=== PATIENT | female | born 1965 | race Caucasian/White ===

== ENCOUNTER → 2018-10-22 | Outpatient (CLI) | payer MEDICARE ==
--- NOTE | 2018-10-23 15:30 | XCELERA REPORT ---
[address] [address] Lower Extremity Arterial Evaluation Name: TABBY DEVI Age: 53 yrs Gender: Female : 1965 Patient Status: Outpatient Patient Location: [facility] Study Date: 10/22/2018 11:17 AM Procedure: A color flow and duplex scan of the lower extremity arteries was performed bilaterally with velocity and waveform anaylsis. Reason For Study: PVD Ordering Physician: CELESTE AGUSTIN Performed By: Selvin Duran Measurements and Calculations Right Left POT FISHER PSV 127.3 107.5 cm/sec Prox PFA PSV -62.9 -55.3 cm/sec Prox Pop A PSV 48.9 51.1 cm/sec Dist ALTAGRACIA PSV -37.1 43.2 cm/sec Dist PONY ROUGHER PSV 34.8 37.6 cm/sec Braulio Pedis PSV -28.5 -34.8 cm/sec Right Side Arterial Evaluation Normal velocity and triphasic waveforms noted from the Common Femoral artery to the infrageniculate vessels. 0 % stenosis . Ankle Brachial index attempted, not tolerable to the patient.. Left Side Arterial Evaluation Normal velocity and triphasic waveforms noted from the Common Femoral artery to the infrageniculate vessels. 0 % stenosis . Ankle Brachial index attempted, not tolerable to the patient.. Interpretation Summary No hemodynamically significant lesions in the bilateral lower extremities, on duplex imaging, at rest. : CELESTE AGUSTIN > Lee Sharp
== END ==
LOC: SP 10:43
PROVIDERS: ATTEND Internal Medicine
DX: I73.9 Peripheral vascular disease, unspecified (principal)
CPT/HCPCS: 93925

== ENCOUNTER → 2019-03-02 | Outpatient (CLI) | payer MEDICARE ==
--- NOTE | 2019-03-02 16:41 | WOMENS IMAGING REPORT ---
EXAM DESCRIPTION: 3D SCREENING MAMMO BILAT COMPLETED DATE/TIME: 03/02/2019 9:53 am REASON FOR STUDY: Z12.31 ENCOUNTER FOR SCREENING MAMMOGRAM FOR MALIGNANT NEOPLASM OF BREAST Z12.31 ENCNTR SCREEN MAMMOGRAM FOR MALIGNANT NEOPLASM OF MARIELA COMPARISON: None. TECHNIQUE: Standard craniocaudal and mediolateral oblique views of each breast recorded using digita l acquisition and breast tomosynthesis. LIMITATIONS: None. FINDINGS: RIGHT BREAST MASSES: No suspicious masses. CALCIFICATIONS: No new or suspicious calcifications. ARCHITECTURAL DISTORTION: None. DEVELOPING DENSITY: None. ASYMMETRY: None noted. OTHER: No other significant findings. LEFT BREAST MASSES: Oval mass in the upper inner breast, located 8 cm from the nipple. Fairly smooth margins on tomosynthesis images. CALCIFICATIONS: Clustered calcifications in the superior breast, located 8.5 cm from the nipple. ARCHITECTURAL DISTORTION: None. DEVELOPING DENSITY: None. ASYMMETRY: None noted. OTHER: No other significant findings. Read with the assistance of CAD. .[facility] - R2 Cenova Version 1.3 .[facility] Imaging - R2 Cenova Version 2.1 .[facility] Imaging - R2 Cenova Version 2.4 .[facility] [place] - R2 Cenova Version 2.4 .[facility] - R2 Appellate [address] Judge Version 9.2 IMPRESSION: Oval mass in the upper inner left breast. Calcifications in the superior left breast. No worrisome mammographic findings in the right breast. BREAST DENSITY: b. There are scattered areas of fibroglandular density. BIRAD: 0 Incomplete: Needs Additional Imaging Evaluation and/or prior Mammograms for Comparison. RECOMMENDATION: RECOMMENDED FOLLOW-UP: Recommend additional evaluation with ultrasound of the left b reast and magnification views of the left breast. Recommend routine screening mammography of the rig ht breast. The patient will be contacted for additional imaging. COMMENT: The patient has been notified of the results by letter per SA requirements. Additional no tification policies are in place for contacting patient with suspicious or incomplete findings. Quality ID #[id number]: The [employer] recommends an annual screening mammogram for women aged 40 years or over. This facility utilizes a reminder system to ensure that all patients receive reminder letters, and/or direct phone calls for appointments. This includes reminders for routine scr eening mammograms, diagnostic mammograms, or other Breast Imaging Interventions when appropriate. Th is patient will be placed in the appropriate reminder system. The [employer] (ACR) has developed recommendations for screening MRI of the breast s in certain patient populations, to be used in conjunction with mammography. Breast MRI surveillanc e may be appropriate for women with more than 20% lifetime risk of developing breast cancer as deter mined by genetic testing, significant family history of the disease, or history of mantle radiation f or Hodgkins Disease. ACR Practice Guidelines 2008. DBT Technology DBT is a type of tomographic mammography. With conventional mammography, overlapping breast tissue ma y make lesions difficult to detect, even with good compression. DBT uses an x-ray tube that rotates a round the breast, taking images at different angles. These images are then combined to create thin sl ices of the breast that the radiologist can view as a 3D reconstruction. The PHARMAJET unit can perform full-field digital mammograms (2D imaging); or DBT (3D imaging); or both, in a combination mode that quickly performs both the mammogram and the tomosynthesis scan while the breast is still compressed. PQRS 6045F: Fluoroscopic imaging is not utilized for breast tomosynthesis. TECHNICAL DOCUMENTATION: FINDING NUMBER: (1) ASSESSMENT: (1) JOB ID: [id number] [employer]- All Rights Reserved Reading location - IP/workstation name: [email or web address]
== END ==
LOC: WI 09:24
PROVIDERS: ATTEND Internal Medicine
DX: Z12.31 Encounter for screening mammogram for malignant neoplasm of breast (principal)
CPT/HCPCS: 77063; 77067

== ENCOUNTER → 2019-03-18 | Outpatient (CLI) | payer MEDICARE ==
--- NOTE | 2019-03-18 15:31 | WOMENS IMAGING REPORT ---
EXAM DESCRIPTION: LEFT DIAGNOSTIC MAMMO W/CAD; U/S BREAST UNILAT LIMITED COMPLETED DATE/TIME: 03/18/2019 9:26 am; 03/18/2019 10:04 am REASON FOR STUDY: N63.22 UNSPECIFIED LUMP IN THE LEFT BREAST, UPPER INNER QUADRANT; LEFT BREAST MASS N63.22 UNSPECIFIED LUMP IN THE LEFT BREAST, UPPER INNER QUAD COMPARISON: Mammograms 03/02/2019 TECHNIQUE: Magnification craniocaudal and 90 mediolateral images, left whole breast 90 mediolatera l of the breast recorded with digital acquisition. Additional left breast 90 mediolateral tomosynthesis was performed. Left breast ultrasound was also performed. LIMITATIONS: None. FINDINGS: BREAST LATERALITY: Left MASSES: There is a mass with lobular borders in the left breast upper inner quadrant 10 to 11 o'clock position measuring about 2.5 x 1.5 cm in size. There are associated coarse dense calcifications. CALCIFICATIONS: In the deep left 12 o'clock position, a cluster of pleomorphic calcifications present without associated mass. These are variable in size shape and density, marked with a [place] on the craniocaudad magnification view. Stereotactic biopsy of the left breast calcifications is recommende d. ARCHITECTURAL DISTORTION: None. DEVELOPING DENSITY: None. ASYMMETRY: None noted. OTHER: No other significant findings. Read with the assistance of CAD. .[facility] - R2 Construction Project Engineer Version 9.2 Left breast ultrasound: Ultrasound of the upper inner quadrant left breast demonstrates a 2.5 x 1.5 cm hypoechoic solid mass. There is acoustic absorption. Associated microcalcifications. Although this could represent a scl erotic fibroadenoma, malignancy could not be excluded. Ultrasound-guided core biopsy with post biops y clip placement and follow-up two-view mammogram recommended. IMPRESSION: Solid left breast mass upper inner quadrant 10 to 11 o'clock position. Ultrasound-guide d core biopsy and post biopsy clip placement mammogram Pleomorphic calcifications in the deep left breast 12 o'clock position. Stereotactic biopsy is recom mended. BREAST DENSITY: c. The breasts are heterogeneously dense, which may obscure small masses. BIRAD: 4 Suspicious. Biopsy should be performed in the absence of clinical contra-indication. Ultrasound-guided core biopsy upper inner quadrant solid left breast 2.5 x 1.5 cm mass. Stereotactic biopsy left breast 12 o'clock pleomorphic microcalcifications RECOMMENDATION: RECOMMENDED FOLLOW UP: Ultrasound-guided core biopsy upper inner quadrant left breas t mass Stereotactic biopsy left breast 12 o'clock microcalcifications. This can be performed on the same da te. SPECIFIC INTERVENTION/IMAGING/CONSULTATION RECOMMENDED:As above COMMUNICATION:Patient notified by letter COMMENT: The patient has been notified of the results by letter per SA requirements. Additional no tification policies are in place for contacting patient with suspicious or incomplete findings. Quality ID #[id number]: The [employer] recommends an annual screening mammogram for women aged 40 years or over. This facility utilizes a reminder system to ensure that all patients receive reminder letters, and/or direct phone calls for appointments. This includes reminders for routine scr eening mammograms, diagnostic mammograms, or other Breast Imaging Interventions when appropriate. Th is patient will be placed in the appropriate reminder system. TECHNICAL DOCUMENTATION: FINDING NUMBER: (1) ASSESSMENT: (1) JOB ID: [id number] [employer] All Rights Reserved Reading location - IP/workstation name: [email or web address]
== END ==
LOC: WI 09:08
PROVIDERS: ATTEND Internal Medicine
DX: N63.22 Unspecified lump in the left breast, upper inner quadrant (principal)
CPT/HCPCS: 76642

== ENCOUNTER → 2019-06-04 | Day surgery (SDC) | payer MEDICARE ==
[~2019-06-04] MED LIST: LIDOCAINE 1% INJ-PF (10 MG/ML) 30 ML SDV ONE; LIDOCAINE 1%/EPINEPHRINE INJ 20 ML VIAL ONE
--- NOTE | 2019-06-05 14:00 | RADIOLOGY REPORT (SQ) ---
EXAM DESCRIPTION: STEREO BREAST BX COMPLETED DATE/TIME: 06/04/2019 10:34 am REASON FOR STUDY: N63.22 UNSPECIFIED LUMP IN THE LEFT BREAST, UPPER INNER QUADRANT N63.22 UNSPECIFI ED LUMP IN THE LEFT BREAST, UPPER INNER QUAD COMPARISON: Mammograms 03/02/2019, 03/18/2019 TECHNIQUE: Vacuum-assisted stereotactic-guided biopsy of the lesion in the left breast. Serial progr ess stereotactic and single digital images acquired. PROCEDURE: Please note that the patient is both deaf and mentally challenged. The procedure was discussed with the patient and her sister ( her legal guardian), including possib le complications such as bleeding, infection, nondiagnostic sample or possible findings such as atypi vitor ductal hyperplasia which would require additional surgery. Possible clip placement was explain ed. Prior imaging was also reviewed with the patient's sister. The larger nodule in the upper outer quadrant right breast 10 to 11 o'clock position is most likely a fibroadenoma given its course benig n-appearing internal calcifications and well-circumscribed margins. Six-month follow-up mammograms a nd ultrasound are recommended to exclude growth or change, patient would not have tolerated the 2nd b iopsy under ultrasound of this lesion today. The patient was placed prone on the stereotactic table. The lesion in the breast was localized ster eotactically. The skin of the breast was prepped in sterile fashion. Superficial and deep local an esthesia was provided. A small incision was made in the skin and the biopsy probe was advanced to t he target. Using the vacuum-assisted core biopsy device, multiple core specimens were obtained. Continuous low dose infusion of local anesthesia was used during the procedure. A specimen radiograph was obtained. The radiograph demonstrated calcifications of concern in the bio psy tissue. Using [id number] technique a pellet clip was deployed at the biopsy site. Mammographic image confirmed presence of the clip. The probe was then removed and hemostasis obtained with manua l compression. A compression bandage was applied. Postoperative instructions were explained to th e patient. POST-PROCEDURE TWO VIEW DIGITAL MAMMOGRAM: No, patient would not tolerate post procedure mammogram LIMITATIONS: None. FINDINGS: PATHOLOGY: Calcifications associated with fibroadenoma. No atypia or malignancy. CONCORDANT: Yes. POST PROCEDURE MAMMOGRAMS FOR MARKER PLACEMENT: No IMPRESSION: SUCCESSFUL STEREOTACTIC-GUIDED BIOPSY OF THE CALCIFICATIONS OF CONCERN IN THE LEFT BREAS T. BIOPSY RESULTS ARE CONCORDANT WITH IMAGING FINDINGS. BI-RADS 2 CALCIFICATIONS AT THE 12 O'CLOCK P OSITION ARE BENIGN AFTER STEREOTACTIC BIOPSY. FOLLOW-UP: WE WERE UNABLE TO PERFORM ULTRASOUND-GUIDED CORE BIOPSY OF A FIBROADENOMA IN THE UPPER OUT ER QUADRANT IDENTIFIED ON DIAGNOSTIC MAMMOGRAMS 03/18/2019. SIX-MONTH FOLLOW-UP LEFT BREAST DIAGNOSTIC MAMMOGRAM AND ULTRASOUND IS RECOMMENDED TO EXCLUDE GROWTH OR CHANGE. NOTIFICATION: DR. AGUSTIN'S OFFICE NOTIFIED OF RESULTS COMMENT: Patient medication list reviewed: Yes- Quality ID# [id number]:Eligible professional attests to doc umenting in the medical record they obtained, updated, or reviewed the patient's current medications. TECHNICAL DOCUMENTATION: JOB ID: [id number] [employer]- All Rights Reserved Reading location - IP/workstation name: [email or web address]
== END ==
LOC: RAD 08:39 → EDSTATUS 14:14
PROVIDERS: ATTEND Internal Medicine
DX: N63.22 Unspecified lump in the left breast, upper inner quadrant (principal); R92.0 Mammographic microcalcification found on diagnostic imaging of breast; D24.2 Benign neoplasm of left breast
CPT/HCPCS: 88305 ×2; 88342; 19081; J3490 ×2

== ENCOUNTER 2020-04-28 20:23 | Inpatient (IN) | payer MEDICARE ==
--- NOTE | 2020-04-28 20:46 | ER Document Report ---
ED Medical Screen (RME) - General Chief Complaint: General Weakness Stated Complaint: POSSIBLE SEIZURE/VOMITING Time Seen by Provider: 04/28/20 20:33 Primary Care Provider: CELESTE AGUSTIN MD [Primary Care Provider] - Follow up as needed Mode of Arrival: Wheelchair Information source: Relative Notes: 54-year-old female presented to ED for possible seizures at home. She is deaf and her sister is translating for her. Her sister's name is cordell. She lives with her sister since February 2018. Patient is a 54-year-old female that has been raised by her grandparents has never lived by herself has some learning disabilities and has been deaf since . She has a history of diabetes strokes x2 high blood pressure COPD and learning disabilities. Sister states she was eating at the table when the children came and got the sister and told her to come forward that the patient was not feeling well. They told the sister that she fell forward into her face the sister ran in there found her with her face on the table and picture up from the table and she states that soon after that she started shaking for about 10 seconds and then fell with the face forward again. Sister states she laid her down on the floor and there was no further shaking but it took a couple minutes before she was able to acknowledge her. She states the patient wears a brief and she has not checked her so she does not know if she was incontinent or not. According to the sister the patient does under some [place] sign language. The sister is using more actions then sign language. Sister states she does not have medical power of county attorney. Patient is alert at this time. I have greeted and performed a rapid initial assessment of this patient. A comprehensive ED assessment and evaluation of the patient, analysis of test results and completion of medical decision making process will be conducted by an additional ED providers. TRAVEL OUTSIDE OF THE [place] IN LAST 30 DAYS: No - Related Data Allergies/Adverse Reactions: No Known Allergies Allergy (Unverified 04/28/20 20:41) Past Medical History - Social History Frequency of alcohol use: None Drug Abuse: None Physical Exam - Vital signs Vitals: Temp Pulse Resp BP Pulse Ox 98.4 F 105 H 20 159/73 H 99 04/28/20 20:31 04/28/20 20:31 04/28/20 20:31 04/28/20 20:31 04/28/20 20:31 Course - Vital Signs Vital signs: Temp Pulse Resp BP Pulse Ox 98.4 F 105 H 20 159/73 H 99 04/28/20 20:33 04/28/20 20:31 04/28/20 20:31 04/28/20 20:31 04/28/20 20:31 Doctor's Discharge - Discharge Referrals: CELESTE AGUSTIN MD [Primary Care Provider] - Follow up as needed
[2020-04-28 21:33] LABS: ABSOLUTE BASOPHILS # (AUTO) 0.1 10^3/uL (0.0-0.2); ABSOLUTE EOSINOPHILS # (AUTO) 0.1 10^3/uL (0.0-0.6); ABSOLUTE LYMPHOCYTES (AUTO) 1.2 10^3/uL (0.5-4.7); ABSOLUTE MONOCYTES (AUTO) 0.5 10^3/uL (0.1-1.4); ABSOLUTE NEUT (AUTO) 10.9 10^3/uL (1.7-8.2); BASOPHILS % (AUTO) 0.5 % (0-2); EOSINOPHILS % (AUTO) 0.8 % (0-6); HEMATOCRIT 25.7 % (36.0-47.0); LYMPHOCYTES % (AUTO) 9.1 % (13-45); MEAN CORPUSCULAR HEMOGLOBIN 22.1 pg (27.0-33.4); MEAN CORPUSCULAR HGB CONC 30.3 g/dL (32.0-36.0); MEAN CORPUSCULAR VOLUME 73 fl (80-97); PLATELET COUNT 416 10^3/uL (150-450); RED BLOOD COUNT 3.52 10^6/uL (3.72-5.28); RED CELL DISTRIBUTION WIDTH 16.6 % (11.5-14.0); SEGMENTED NEUTROPHILS % (AUTO) 85.6 % (42-78); TOTAL CELLS COUNTED % (AUTO) 100 %; WHITE BLOOD COUNT 12.7 10^3/uL (4.0-10.5)
[2020-04-28 21:37] LABS: HEMOGLOBIN 7.8 g/dL (12.0-15.5)
[2020-04-28 21:44] LABS: ALBUMIN 4.2 g/dL (3.5-5.0); ALCOHOL < 10 mg/dL (NONE DETECTED); ALKALINE PHOSPHATASE 128 U/L (38-126); ANION GAP 11 (5-19); ASPARTATE AMINO TRANSFERASE 21 U/L (14-36); BILIRUBIN,TOTAL 0.3 mg/dL (0.2-1.3); BLOOD UREA NITROGEN 12 mg/dL (7-20); CALCIUM 9.7 mg/dL (8.4-10.2); CARBON DIOXIDE 24 mmol/L (22-30); CHLORIDE 103 mmol/L (98-107); GLUCOSE 278 mg/dL (75-110); POTASSIUM 4.9 mmol/L (3.6-5.0); TOTAL PROTEIN 8.5 g/dL (6.3-8.2)
[2020-04-29 01:35] LABS: APPEARANCE,URINE CLOUDY; BILIRUBIN,URINE NEGATIVE (NEGATIVE); COLOR,URINE RED; GLUCOSE, URINE NEGATIVE (NEGATIVE); KETONES,URINE NEGATIVE (NEGATIVE); LEUKOCYTE ESTERASE,URINE SMALL (NEGATIVE); NITRITE,URINE NEGATIVE (NEGATIVE); PROTEIN,URINE 100 mg/dL (NEGATIVE); UROBILINOGEN,URINE NEGATIVE mg/dL (<2.0)
--- NOTE | 2020-04-29 01:42 | RADIOLOGY REPORT (SQ) ---
CLINICAL HISTORY: sz trauma COMPARISON: None. TECHNIQUE: CT HEAD WITHOUT IV CONTRAST on 04/29/2020 12:16 AM CDT This exam was performed according to our departmental dose-optimization program, which includes automated exposure control, adjustment of the mA and/or kV according to patient size and/or use of iterative reconstruction technique. FINDINGS: There is no acute hemorrhage, mass effect or midline shift. There is an old lacunar infarct in the left melissa. There is encephalomalacia in the left parietal and occipital lobe. There are anterior bilateral basal ganglia lacunar infarcts. There is no hydrocephalus. There is no significant volume loss for age. The calvarium is intact. Orbits and globes are unremarkable. The paranasal sinuses are clear. Mastoid air cells are clear. IMPRESSION: No convincing acute findings. Presumed sequela of old infarcts. Consider MRI if there is concern for acute infarct.
--- NOTE | 2020-04-29 01:47 | RADIOLOGY REPORT (SQ) ---
EXAM DESCRIPTION: XR CHEST 1 VIEW COMPLETED DATE/TME: 04/29/2020 00:53 CLINICAL HISTORY: 54 years Female leukocytosis syncope COMPARISON: None. FINDINGS: Patient is slightly rotated to the right. Lungs appear mildly hyperinflated. No acute consolidation. Heart is at the upper limits of normal. No pneumothorax. IMPRESSION: No acute abnormality is identified. Mild pulmonary hyperinflation
[2020-04-29 02:23] LABS: URINE AMPHETAMINES SCREEN NEGATIVE; URINE BARBITURATES SCREEN NEGATIVE; URINE BENZODIAZEPINES SCREEN NEGATIVE; URINE COCAINE SCREEN NEGATIVE; URINE MARIJUANA (THC) SCREEN NEGATIVE; URINE METHADONE SCREEN NEGATIVE; URINE PHENCYCLIDINE SCREEN NEGATIVE
[2020-04-29 02:39] LABS: INTERNATIONAL RATION (INR) 1.08
[2020-04-29 02:40] LABS: PARTIAL THROMBOPLASTIN TIME 30.3 SEC (23.5-35.8)
--- NOTE | 2020-04-29 03:00 | ER Document Report ---
ED General - General Chief Complaint: General Weakness Stated Complaint: POSSIBLE SEIZURE/VOMITING Time Seen by Provider: 04/28/20 20:33 Mode of Arrival: Wheelchair TRAVEL OUTSIDE OF THE [place] IN LAST 30 DAYS: No - HPI Notes: 54-year-old female history of MR, deafness, stroke with residual right-sided weakness, diabetes, COPD presents with episode of altered mental status. Blanca ent is in the care of her niece who is a hospital employee. Patient's niece reports that patient has been seeming tired and generally weak for the past week and then just prior to arrival patient was sitting down to eat at the table and slumped over and became unresponsive for several seconds with some diffuse shaking movements. After that patient return to consciousness without any specific complaints. Episode occurred without any trauma. Niece and patient deny any chest pain, SOB, seizure history, known cardiac history, prior episodes, recent fever, cough, specific complaints made by the patient, diarrhea/melena/bloody stool, recent hospitalizations, recent antibiotics. He states that patient still has her menstrual period and has had her menstrual period this week. Unknown if any history of anemia. Last visit with PCP approximately 1 year ago at least. - Related Data Allergies/Adverse Reactions: No Known Allergies Allergy (Unverified 04/28/20 20:41) Past Medical History - General Information source: Patient, Relative, [facility] Records - Social History Smoking Status: Former Smoker Frequency of alcohol use: None Drug Abuse: None Family History: Reviewed & Not Pertinent Patient has homicidal ideation: No Pulmonary Medical History: Reports: Hx COPD Endocrine Medical History: Reports: Hx Diabetes Mellitus Type 1 Review of Systems - Review of Systems Notes: REVIEW OF SYSTEMS: CONSTITUTIONAL : Denies fever, chills, or sweats. EENT: Denies recent cold/URI symptoms CARDIOVASCULAR: Denies chest pain, FRANK RESPIRATORY: Denies cough, denies shortness of breath. GASTROINTESTINAL: Denies abdominal pain, nausea/vomiting. GENITOURINARY: Denies difficulty urinating, painful urination. FEMALE GENITOURINARY: Denies abnormal vaginal bleeding, vaginal discharge. MUSCULOSKELETAL: Denies neck pain, back pain. SKIN: Denies rash or skin lesions. NEUROLOGICAL: Denies headache, denies change in gait. PSYCHIATRIC: Denies anxiety or stress or depression. Physical Exam - Vital signs Vitals: Temp Pulse Resp BP Pulse Ox 98.4 F 105 H 20 159/73 H 99 04/28/20 20:31 04/28/20 20:31 04/28/20 20:31 04/28/20 20:31 04/28/20 20:31 - Notes Notes: PHYSICAL EXAMINATION: GENERAL: Well-nourished and in no acute distress. HEAD: Atraumatic, normocephalic. EYES: Pupils equal round and appropriate constriction, sclera anicteric, conjunctiva are normal. ENT: nares patent, moist mucous membranes. NECK: Normal range of motion, supple without lymphadenopathy LUNGS: Breath sounds clear to auscultation bilaterally and equal. No wheezes rales or rhonchi. HEART: Regular rate and rhythm with prominent systolic ejection murmur loudest over upper right sternal border ABDOMEN: Soft, nontender, no guarding, no masses, no CVAT, no stool or blood in vault, guaiac positive but contaminated by menstrual blood. PELVIC: Dark red blood with some small clots in the vaginal vault consistent with amount of blood expected from menstrual period, no tenderness no discharge EXTREMITIES: Normal range of motion, no pitting or edema. No cyanosis. NEUROLOGICAL: Awake, alert, conversing appropriately for baseline, moves all extremities spontaneously, right arm and right leg weakness PSYCH: Normal mood, normal affect. SKIN: Warm, Dry, normal turgor, no rashes or lesions noted. Course - Re-evaluation Re-evalutation: 04/29/20 03:02 Syncope or seizure of unknown etiology without prior episodes. Rule out ACS, sepsis, electrolyte abnormalities, symptomatic anemia/active bleeding, syncope secondary to aortic stenosis or other valvular or structural heart disease. Hemoglobin 7.8 but no known baseline and patient says that she has not had a bowel movement for 3 days. Menstrual bleeding on exam consistent with normal amount and unlikely cause of acute hemoglobin drop. Patient's EKG was concerning for acute ischemia with ST elevation in aVR and lateral and inferior T wave inversions, but patient denies having any ACS symptoms and initial trop resulted around time of receiving EKG and it was 0.041. Given concerning EKG findings I still discussed case with provider chief of field operations for [facility] cardiology "Lizeth" who said that this patient should be monitored and was not be a candidate for emergent catheterization. I would not start patient on heparin given possibility of current bleeding but will give 1 dose of aspirin. Discussed case with Dr. Pack who has accepted patient to telemetry. - Vital Signs Vital signs: Temp Pulse Resp BP Pulse Ox 98.2 F 103 H 18 128/86 H 100 04/29/20 01:28 04/29/20 06:34 04/29/20 02:01 04/29/20 02:00 04/29/20 02:01 - Laboratory Result Diagrams: 04/28/20 21:03 04/28/20 21:03 Laboratory results interpreted by me: 04/28/20 04/28/20 04/28/20 21:03 21:03 21:03 WBC 12.7 H RBC 3.52 L Hgb 7.8 L Hct 25.7 L MCV 73 L MCH 22.1 L MCHC 30.3 L RDW 16.6 H Lymph % (Auto) 9.1 L Absolute Neuts (auto) 10.9 H Seg Neutrophils % 85.6 H Glucose 278 H Alkaline Phosphatase 128 H Total Protein 8.5 H TSH 6.17 H Urine Protein Urine Blood Ur Leukocyte Esterase 04/29/20 00:35 WBC RBC Hgb Hct MCV MCH MCHC RDW Lymph % (Auto) Absolute Neuts (auto) Seg Neutrophils % Glucose Alkaline Phosphatase Total Protein TSH Urine Protein 100 H Urine Blood LARGE H Ur Leukocyte Esterase SMALL H - EKG Interpretation by Me Additional EKG results interpreted by me: 04/29/20 03:05 Heart rate 96, ST elevation in aVR, T wave inversions in 1 to aVL and lateral leads, no priors available, QTc 430 Repeat EKG obtained with heart rate 103, no significant change from initial EKG. Discharge - Discharge Clinical Impression: Cardiac enzymes elevated Altered mental status Qualifiers: Altered mental status type: transient alteration of awareness Qualified Code(s): R40.4 - Transient alteration of awareness Anemia Qualifiers: Anemia type: unspecified type Qualified Code(s): D64.9 - Anemia, unspecified Condition: Stable Disposition: ADMITTED INPATIENT Admitting Provider: Ramone Unit Admitted: Telemetry
[2020-04-29] MEDS ORDERED: ASPIRIN 81 MG TABLET, CHEWABLE PO ONE (03:04)
[2020-04-29] MEDS ORDERED: DEXTROSE 40% GEL 15 GM TUBE PO PRN ×2 (04:45)
[2020-04-29] MEDS ORDERED: GLUCAGON,HUMAN RECOMB 1 MG INJ IM PRN (04:45)
[2020-04-29] MEDS ORDERED: DEXTROSE 50%-WATER 25 GM/50 ML DISP.SYRIN IV PRN ×2 (04:45)
[2020-04-29] MEDS ORDERED: INSULIN LISPRO 100 UNIT/ML 3 ML VIAL SUBCUT ONE (05:15)
[2020-04-29 05:26] LABS: ABSOLUTE RETICS # 0.093 10^6/uL (0.028-0.122); RETICULOCYTE COUNT (AUTO) 2.68 % (0.66-2.85)
[2020-04-29 05:45] LABS: FREE T4 (FREE THYROXINE) 1.29 ng/dL (0.78-2.19)
[2020-04-29 05:59] LABS: THYROID STIMULATING HORMONE 6.17 uIU/mL (0.47-4.68)
[2020-04-29 06:02] LABS: INTERNATIONAL RATION (INR) 1.12; PROTHROMBIN TIME 14.5 SEC (11.4-15.4)
[2020-04-29 06:03] LABS: PARTIAL THROMBOPLASTIN TIME 30.9 SEC (23.5-35.8)
[2020-04-29 06:18] LABS: CREATINE KINASE 44 U/L (30-135); IRON(TIBC) 19.5 ug/dL (37-170)
[2020-04-29 06:29] LABS: CREATINE KINASE MB 1.02 ng/mL (<4.55); TROPONIN I 0.041 ng/mL
[2020-04-29 08:56] LABS: UR PRO/CREAT RATIO RESULT 0.2 mg/mg (0.0-0.2); URINE CREATININE 164.7 mg/dL (15-278); URINE PROTEIN 26.6 mg/dL (<12)
[2020-04-29] MEDS ORDERED: ENOXAPARIN SODIUM INJ 40 MG/0.4 ML DISP.SYRIN SUBCUT SCH (10:00)
[2020-04-29] MEDS: INSULIN LISPRO 100 UNIT/ML 3 ML VIAL SUBCUT SCH ×3 (12:12→22:05)
[2020-04-29 13:12] LABS: CREATINE KINASE MB 1.24 ng/mL (<4.55); TROPONIN I 0.033 ng/mL
[2020-04-29 17:17] LABS: CREATINE KINASE MB 1.23 ng/mL (<4.55); TROPONIN I 0.032 ng/mL
--- NOTE | 2020-04-29 18:52 | RADIOLOGY REPORT (SQ) ---
EXAM DESCRIPTION: CT ABD/PELVIS WITH IV ONLY IMAGES COMPLETED DATE/TIME: 04/29/2020 5:31 pm REASON FOR STUDY: abdominal pain ,vaginal bleed. COMPARISON: None. TECHNIQUE: CT scan of the abdomen and pelvis performed using helical scanning technique with dynamic intravenous contrast injection. No oral contrast. Images reviewed with lung, soft tissue, and bone windows. Reconstructed coronal and sagittal MPR images reviewed. Delayed images for evaluation of the urinary system also acquired. All images stored on PACS. All CT scanners at this facility use dose modulation, iterative reconstruction, and/or weight based d osing when appropriate to reduce radiation dose to as low as reasonably achievable (ALARA). [facility]: Dose Right [facility]: CareDose [facility]: Dose Right [facility]: Teradose 4D [facility]: [employer] CONTRAST TYPE AND DOSE: 53 mL Omnipaque 350- low osmolar. RENAL FUNCTION: GFR > 60. RADIATION DOSE: CT Rad equipment meets quality standard of care and radiation dose reduction techniq ues were employed. CTDIvol: 4.8 - 5.0 mGy. DLP: 497 mGy-cm.. LIMITATIONS: None. FINDINGS: LOWER CHEST: No significant findings. No nodules or infiltrates. LIVER: Normal size. No masses. No dilated ducts. SPLEEN: Normal size. No focal lesions. PANCREAS: No masses. No significant calcifications. No adjacent inflammation or peripancreatic fluid collections. Pancreatic duct not dilated. GALLBLADDER: No identified stones by CT criteria. No inflammatory changes to suggest cholecystitis. ADRENAL GLANDS: No significant masses or asymmetry. RIGHT KIDNEY AND URETER: No solid masses. No significant calcifications. No hydronephrosis or hyd roureter. LEFT KIDNEY AND URETER: No solid masses. No significant calcifications. No hydronephrosis or hydr oureter. AORTA AND VESSELS: No aneurysm. No dissection. Renal arteries, SMA, celiac without stenosis. RETROPERITONEUM: No retroperitoneal adenopathy, hemorrhage or masses. BOWEL AND PERITONEAL CAVITY: No masses or inflammatory changes. No free fluid or peritoneal masses. APPENDIX: Normal. PELVIS: There is a mass at the left lower uterine segment with hypodense attenuation and central calc ifications, contiguous with the uterus measuring 5.3 x 4.7 cm. This appears to involve the lower mignon felicia and possibly the cervix. The cervix has an irregular appearance best appreciated on coronal imag e 33, possibly indicating an underlying cervical mass. There is a large amount of fluid and debris w ithin the vagina. Urinary bladder has normal contour. No adnexal mass. ABDOMINAL WALL: No masses. No hernias. BONES: No significant or acute findings. OTHER: No other significant finding. IMPRESSION: 1. Mass involving the lower uterine segment with heterogeneous appearance and central calcifications, most consistent with a uterine leiomyoma. This appears contiguous with the uterine cervix. The cer vix has an irregular appearance and an underlying cervical mass is not excluded. Direct visualizatio n is recommended. 2. Large amount of debris/hemorrhage in the vagina. TECHNICAL DOCUMENTATION: JOB ID: [id number] Quality ID # [id number]: Final reports with documentation of one or more dose reduction techniques (e.g., Au tomated exposure control, adjustment of the mA and/or kV according to patient size, use of iterative reconstruction technique) 2010 [employer]- All Rights Reserved Reading location - IP/workstation name: [email or web address]
--- NOTE | 2020-04-29 19:01 | EKG REPORT ---
SEVERITY:- ABNORMAL ECG - INCOMPLETE ANALYSIS DUE TO MISSING DATA IN PRECORDIAL LEAD(S) SINUS TACHYCARDIA PROBABLE LVH WITH SECONDARY REPOL ABNRM : Confirmed by: Kelley Argueta MD 29-Apr-2020 19:00:20
--- NOTE | 2020-04-29 19:02 | EKG REPORT ---
SEVERITY:- ABNORMAL ECG - SINUS RHYTHM ABNORMAL T, CONSIDER ISCHEMIA, DIFFUSE LEADS PROBABLE LVH WITH STRAIN PATTERN : Confirmed by: Kelley Argueta MD 29-Apr-2020 19:01:29
--- NOTE | 2020-04-29 19:36 | PDOC CONSULTATION ---
Consultation-Blank Consultation: CARDIOLOGY CONSULTATION by Dr. Kelley Argueta on 04/29/2020. Patient seen at 2 PM. 60 minutes spent with patient more than 50% of the time spent in direct patient care. Consult requesting physician: Dr. Pack. REASON FOR CONSULTATION: Syncope. HISTORY OF PRESENT ILLNESS: Note history obtained from the patient's sister who is a registered nurse. Patient is hearing impaired and also speech impaired. Hence not much history obtainable from the patient. As per the patient's sister the patient was sitting on the dining table had sudden onset of syncopal episode and had a witnessed seizure activity. There was no complaints of chest pain or discomfort. It is also very clear that the syncope was not exertional. There is no prior such episodes. There was no postictal state and there was no fecal or urinary incontinence. The patient as per the sister is known to have a heart murmur, but has not had a detailed work-up. There is no history of hypertension. She has a history of diabetes mellitus and COPD. 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 She can walk short distances with a walker. The patient is not very active. She is very anemic, and as per the sister the patient has been having significant vaginal bleeding. Past Medical History Pulmonary Medical History: Reports: Chronic Obstructive Pulmonary Disease (COPD) Neurological Medical History: Reports: Ischemic CVA Endocrine Medical History: Reports: Diabetes Mellitus Type 2 Social History Smoking Status: Former Smoker Number of Years Smokin Frequency of Alcohol Use: Rare Hx Recreational Drug Use: No Drugs: None Hx Prescription Drug Abuse: No RESUSCITATION STATUS: The patient is a full code. Her sister is a surrogate healthcare decision maker. Family History Family History: Reviewed & Not Pertinent Parental Family History Reviewed: Yes Children Family History Reviewed: Yes Sibling(s) Family History Reviewed.: Yes Medication/Allergy Home Medications: No Home Medications 04/29/20 Allergies/Adverse Reactions: No Known Allergies Allergy (Unverified 04/28/20 20:41) Current Medications Generic Name Dose Route Start Last Admin Trade Name Freq PRN Reason Stop Dose Admin Dextrose 12.5 gm 04/29/20 04:45 Dextrose Inj 50% Syringe (25 Gm/50 Ml) IV 05/29/20 04:44 PRN PRN FOR BG 50-69 IN ALERT PATIENT Protocol Dextrose 25 gm 04/29/20 04:45 Dextrose Inj 50% Syringe (25 Gm/50 Ml) IV 05/29/20 04:44 PRN PRN PER PROTOCOL Protocol Glucagon 1 mg 04/29/20 04:45 Glucagen Inj 1 Mg Vial IM 05/29/20 04:44 PRN PRN Evaluate for BG < 70 Protocol Glucose 15 gm 04/29/20 04:45 Glutose 40% Gel 15 Gm Tube PO 05/29/20 04:44 PRN PRN FOR BG 50-69 IN ALERT PATIENT Protocol Glucose 30 gm 04/29/20 04:45 Glutose 40% Gel 15 Gm Tube PO 05/29/20 04:44 PRN PRN FOR BG < 50 IN ALERT PATIENT Protocol Insulin Human Lispro 0 - 12 unit 04/29/20 11:00 04/29/20 22:05 Humalog Insulin 100 Unit/1 Ml 3 Ml Vial SUBCUT 05/29/20 10:59 4 unit ACHS MARE Administration Protocol Discontinued Medications Generic Name Dose Route Start Last Admin Trade Name Freq PRN Reason Stop Dose Admin Aspirin 324 mg 04/29/20 03:04 04/29/20 03:09 Aspirin 81 Mg Chewable Tablet PO 04/29/20 03:05 324 mg NOW ONE Administration Enoxaparin Sodium 40 mg 04/29/20 10:00 04/29/20 10:00 Lovenox Inj 40 Mg/0.4 Ml Disp.Syrin SUBCUT 05/29/20 09:59 40 mg DAILY MARE Administration Insulin Human Lispro 0 - 12 unit 04/29/20 05:15 04/29/20 06:13 Humalog Insulin 100 Unit/1 Ml 3 Ml Vial SUBCUT 04/29/20 05:16 Not Given NOW ONE Protocol Review of Systems ROS unobtainable: Other - hearing impaired ,speech impaired PHYSICAL EXAMINATION: The patient is a frail build. Appears to be in no acute distress. Selected Entries 04/29/20 11:48 Temperature 97.8 F Temperature Oral Source Pulse Rate 98 Respiratory 18 Rate Blood Pressure 140/75 H Blood Pressure 96 Mean BP Location Left Arm BP Position Supine O2 Sat by Pulse 100 Oximetry Oxygen Delivery Room Air Method HEAD: Is atraumatic normocephalic. EYES: Pupils are equal round regular reactive light and there is conjunctival pallor. There is no scleral icterus. Accommodation. Extraocular movements are normal. EARS: Tympanic membranes are intact. External auditory canals are clear. NOSE: There is no deviated nasal septum. There is no inflammation of the nasal mucous membrane. MOUTH: Mucous membranes of the mouth are moist. Tongue is moist. There is no ulcers. There is no bleeding from the gums. THROAT: There is no redness of the oropharynx. There is no exudates. SKIN: There is no skin rashes. There is no petechia or ecchymosis. There is no skin lesions. NECK: Is supple. There is no JVD. Carotids equal there is carotid delay bilaterally. There is transmitted aortic murmur heard over the carotids. There is no lymphadenopathy. There is no goiter. There is no accessory muscle respiration use. Trachea central. LUNGS: Show diminished air entry prolonged expiration. There is no rhonchi rales or wheezing. HEART: S1-S2 is heard. There is no S3 gallop or S4 gallop. There is murmur of aortic stenosis with absent A2 sound. There is no thrill over the aortic area. There is murmur of tricuspid regurgitation present present. There is mild mitral regurgitation murmur present. There is no rub. ABDOMEN: Soft. Nontender. There is no paraspinal megaly. Bowel sounds are well heard. EXTREMITIES: Femorals are well felt. There is no femoral bruits. Leg pulses are well felt. There is no pedal edema. There is no DVT or cellulitis. There is no calf tenderness. There is no DVT or cellulitis. There is no cyanosis or clubbing. MARKET RISK ANALYST: The patient is conscious awake with mild right-sided weakness. PSYCHIATRIC: The patient does not appear to be agitated or depressed. Full psychiatric examination could not be done due to patient being hearing impaired and speech impaired. Labs- Entire Visit 04/28/20 04/28/20 04/28/20 21:03 21:03 21:03 WBC 12.7 H RBC 3.52 L Hgb 7.8 L Hct 25.7 L MCV 73 L MCH 22.1 L MCHC 30.3 L RDW 16.6 H Plt Count 416 Lymph % (Auto) 9.1 L Wilkes % (Auto) 4.0 Eos % (Auto) 0.8 Baso % (Auto) 0.5 Reticulocyte # Absolute Neuts (auto) 10.9 H Absolute Lymphs (auto) 1.2 Absolute Monos (auto) 0.5 Absolute Eos (auto) 0.1 Absolute Basos (auto) 0.1 Total Counted Seg Neutrophils % 85.6 H Seg Neuts % (Manual) Lymphocytes % (Manual) Monocytes % (Manual) Eosinophils % (Manual) Basophils % (Manual) Abs Neuts (Manual) Abs Lymphs (Manual) Abs Monocytes (Manual) Absolute Eos (Manual) Abs Basophils (Manual) Platelet Comment Polychromasia Hypochromasia Poikilocytosis Anisocytosis Microcytosis Ovalocytes Retic Count (auto) PT INR APTT Sodium 137.9 Potassium 4.9 Chloride 103 Carbon Dioxide 24 Anion Gap 11 BUN 12 Creatinine 0.82 Est GFR ( Amer) > 60 Est GFR (MDRD) Non-Af > 60 Glucose 278 H POC Glucose Hemoglobin A1c % Lactic Acid Calcium 9.7 Phosphorus Magnesium 2.1 Iron TIBC % Saturation Transferrin Ferritin Total Bilirubin 0.3 Direct Bilirubin 0.0 Neonat Total Bilirubin Not Reportable Neonat Direct Bilirubin Not Reportable Neonat Indirect Bili Not Reportable AST 21 ALT 9 Alkaline Phosphatase 128 H Ammonia Creatine Kinase CK-MB (CK-2) Troponin I 0.041 Total Protein 8.5 H Albumin 4.2 Amylase Lipase Vitamin B12 Folate TSH Free T4 Urine Color Urine Appearance Urine pH Ur Specific [place] Urine Protein Urine Glucose (UA) Urine Ketones Urine Blood Urine Nitrite Urine Bilirubin Urine Urobilinogen Ur Leukocyte Esterase Urine WBC (Auto) Urine RBC (Auto) Urine Mucus (Auto) Urine Creatinine Protein/Creatinin Ratio Urine Total Protein Urine Ascorbic Acid Urine Opiates Screen Urine Methadone Screen Ur Barbiturates Screen Ur Phencyclidine Scrn Ur Amphetamines Screen U Benzodiazepines Scrn Urine Cocaine Screen U Marijuana (THC) Screen Serum Alcohol < 10 Blood Type Blood Type Confirm Antibody Screen Crossmatch 04/28/20 04/28/20 04/28/20 21:03 21:03 21:03 WBC RBC Hgb Hct MCV MCH MCHC RDW Plt Count Lymph % (Auto) Wilkes % (Auto) Eos % (Auto) Baso % (Auto) Reticulocyte # 0.093 Absolute Neuts (auto) Absolute Lymphs (auto) Absolute Monos (auto) Absolute Eos (auto) Absolute Basos (auto) Total Counted Seg Neutrophils % Seg Neuts % (Manual) Lymphocytes % (Manual) Monocytes % (Manual) Eosinophils % (Manual) Basophils % (Manual) Abs Neuts (Manual) Abs Lymphs (Manual) Abs Monocytes (Manual) Absolute Eos (Manual) Abs Basophils (Manual) Platelet Comment Polychromasia Hypochromasia Poikilocytosis Anisocytosis Microcytosis Ovalocytes Retic Count (auto) 2.68 PT INR APTT Sodium Potassium Chloride Carbon Dioxide Anion Gap BUN Creatinine Est GFR ( Amer) Est GFR (MDRD) Non-Af Glucose POC Glucose Hemoglobin A1c % Lactic Acid Calcium Phosphorus Magnesium Iron TIBC % Saturation Transferrin 312.78 Ferritin Total Bilirubin Direct Bilirubin Neonat Total Bilirubin Neonat Direct Bilirubin Neonat Indirect Bili AST ALT Alkaline Phosphatase Ammonia Creatine Kinase CK-MB (CK-2) Troponin I Total Protein Albumin Amylase Lipase Vitamin B12 Folate TSH 6.17 H Free T4 1.29 Urine Color Urine Appearance Urine pH Ur Specific [place] Urine Protein Urine Glucose (UA) Urine Ketones Urine Blood Urine Nitrite Urine Bilirubin Urine Urobilinogen Ur Leukocyte Esterase Urine WBC (Auto) Urine RBC (Auto) Urine Mucus (Auto) Urine Creatinine Protein/Creatinin Ratio Urine Total Protein Urine Ascorbic Acid Urine Opiates Screen Urine Methadone Screen Ur Barbiturates Screen Ur Phencyclidine Scrn Ur Amphetamines Screen U Benzodiazepines Scrn Urine Cocaine Screen U Marijuana (THC) Screen Serum Alcohol Blood Type Blood Type Confirm Antibody Screen Crossmatch 04/28/20 04/29/20 04/29/20 21:03 00:35 00:35 WBC RBC Hgb Hct MCV MCH MCHC RDW Plt Count Lymph % (Auto) Wilkes % (Auto) Eos % (Auto) Baso % (Auto) Reticulocyte # Absolute Neuts (auto) Absolute Lymphs (auto) Absolute Monos (auto) Absolute Eos (auto) Absolute Basos (auto) Total Counted Seg Neutrophils % Seg Neuts % (Manual) Lymphocytes % (Manual) Monocytes % (Manual) Eosinophils % (Manual) Basophils % (Manual) Abs Neuts (Manual) Abs Lymphs (Manual) Abs Monocytes (Manual) Absolute Eos (Manual) Abs Basophils (Manual) Platelet Comment Polychromasia Hypochromasia Poikilocytosis Anisocytosis Microcytosis Ovalocytes Retic Count (auto) PT INR APTT Sodium Potassium Chloride Carbon Dioxide Anion Gap BUN Creatinine Est GFR ( Amer) Est GFR (MDRD) Non-Af Glucose POC Glucose Hemoglobin A1c % 6.8 H Lactic Acid Calcium Phosphorus Magnesium Iron TIBC % Saturation Transferrin Ferritin Total Bilirubin Direct Bilirubin Neonat Total Bilirubin Neonat Direct Bilirubin Neonat Indirect Bili AST ALT Alkaline Phosphatase Ammonia Creatine Kinase CK-MB (CK-2) Troponin I Total Protein Albumin Amylase Lipase Vitamin B12 Folate TSH Free T4 Urine Color RED Urine Appearance CLOUDY Urine pH 5.0 Ur Specific [place] 1.020 Urine Protein 100 H Urine Glucose (UA) NEGATIVE Urine Ketones NEGATIVE Urine Blood LARGE H Urine Nitrite NEGATIVE Urine Bilirubin NEGATIVE Urine Urobilinogen NEGATIVE Ur Leukocyte Esterase SMALL H Urine WBC (Auto) 103 Urine RBC (Auto) >182 Urine Mucus (Auto) OCC Urine Creatinine Protein/Creatinin Ratio Urine Total Protein Urine Ascorbic Acid NEGATIVE Urine Opiates Screen NEGATIVE Urine Methadone Screen NEGATIVE Ur Barbiturates Screen NEGATIVE Ur Phencyclidine Scrn NEGATIVE Ur Amphetamines Screen NEGATIVE U Benzodiazepines Scrn NEGATIVE Urine Cocaine Screen NEGATIVE U Marijuana (THC) Screen NEGATIVE Serum Alcohol Blood Type Blood Type Confirm Antibody Screen Crossmatch 04/29/20 04/29/20 04/29/20 00:35 01:50 01:50 WBC RBC Hgb Hct MCV MCH MCHC RDW Plt Count Lymph % (Auto) Wilkes % (Auto) Eos % (Auto) Baso % (Auto) Reticulocyte # Absolute Neuts (auto) Absolute Lymphs (auto) Absolute Monos (auto) Absolute Eos (auto) Absolute Basos (auto) Total Counted Seg Neutrophils % Seg Neuts % (Manual) Lymphocytes % (Manual) Monocytes % (Manual) Eosinophils % (Manual) Basophils % (Manual) Abs Neuts (Manual) Abs Lymphs (Manual) Abs Monocytes (Manual) Absolute Eos (Manual) Abs Basophils (Manual) Platelet Comment Polychromasia Hypochromasia Poikilocytosis Anisocytosis Microcytosis Ovalocytes Retic Count (auto) PT INR APTT Sodium Potassium Chloride Carbon Dioxide Anion Gap BUN Creatinine Est GFR ( Amer) Est GFR (MDRD) Non-Af Glucose POC Glucose Hemoglobin A1c % Lactic Acid 1.1 Calcium Phosphorus Magnesium Iron TIBC % Saturation Transferrin Ferritin Total Bilirubin Direct Bilirubin Neonat Total Bilirubin Neonat Direct Bilirubin Neonat Indirect Bili AST ALT Alkaline Phosphatase Ammonia Creatine Kinase CK-MB (CK-2) Troponin I 0.037 Total Protein Albumin Amylase Lipase Vitamin B12 Folate TSH Free T4 Urine Color Urine Appearance Urine pH Ur Specific [place] Urine Protein Urine Glucose (UA) Urine Ketones Urine Blood Urine Nitrite Urine Bilirubin Urine Urobilinogen Ur Leukocyte Esterase Urine WBC (Auto) Urine RBC (Auto) Urine Mucus (Auto) Urine Creatinine 164.7 Protein/Creatinin Ratio 0.2 Urine Total Protein 26.6 H Urine Ascorbic Acid Urine Opiates Screen Urine Methadone Screen Ur Barbiturates Screen Ur Phencyclidine Scrn Ur Amphetamines Screen U Benzodiazepines Scrn Urine Cocaine Screen U Marijuana (THC) Screen Serum Alcohol Blood Type Blood Type Confirm Antibody Screen Crossmatch 04/29/20 04/29/20 04/29/20 01:50 02:22 05:43 WBC RBC Hgb Hct MCV MCH MCHC RDW Plt Count Lymph % (Auto) Wilkes % (Auto) Eos % (Auto) Baso % (Auto) Reticulocyte # Absolute Neuts (auto) Absolute Lymphs (auto) Absolute Monos (auto) Absolute Eos (auto) Absolute Basos (auto) Total Counted Seg Neutrophils % Seg Neuts % (Manual) Lymphocytes % (Manual) Monocytes % (Manual) Eosinophils % (Manual) Basophils % (Manual) Abs Neuts (Manual) Abs Lymphs (Manual) Abs Monocytes (Manual) Absolute Eos (Manual) Abs Basophils (Manual) Platelet Comment Polychromasia Hypochromasia Poikilocytosis Anisocytosis Microcytosis Ovalocytes Retic Count (auto) PT 14.0 14.5 INR 1.08 1.12 APTT 30.3 30.9 Sodium Potassium Chloride Carbon Dioxide Anion Gap BUN Creatinine Est GFR ( Amer) Est GFR (MDRD) Non-Af Glucose POC Glucose Hemoglobin A1c % Lactic Acid Calcium Phosphorus Magnesium Iron TIBC % Saturation Transferrin Ferritin Total Bilirubin Direct Bilirubin Neonat Total Bilirubin Neonat Direct Bilirubin Neonat Indirect Bili AST ALT Alkaline Phosphatase Ammonia Creatine Kinase CK-MB (CK-2) Troponin I Total Protein Albumin Amylase Lipase Vitamin B12 Folate TSH Free T4 Urine Color Urine Appearance Urine pH Ur Specific [place] Urine Protein Urine Glucose (UA) Urine Ketones Urine Blood Urine Nitrite Urine Bilirubin Urine Urobilinogen Ur Leukocyte Esterase Urine WBC (Auto) Urine RBC (Auto) Urine Mucus (Auto) Urine Creatinine Protein/Creatinin Ratio Urine Total Protein Urine Ascorbic Acid Urine Opiates Screen Urine Methadone Screen Ur Barbiturates Screen Ur Phencyclidine Scrn Ur Amphetamines Screen U Benzodiazepines Scrn Urine Cocaine Screen U Marijuana (THC) Screen Serum Alcohol Blood Type B POSITIVE Blood Type Confirm B POSITIVE Antibody Screen NEGATIVE Crossmatch See Detail 04/29/20 04/29/20 04/29/20 05:43 05:43 05:43 WBC RBC Hgb Hct MCV MCH MCHC RDW Plt Count Lymph % (Auto) Wilkes % (Auto) Eos % (Auto) Baso % (Auto) Reticulocyte # Absolute Neuts (auto) Absolute Lymphs (auto) Absolute Monos (auto) Absolute Eos (auto) Absolute Basos (auto) Total Counted Seg Neutrophils % Seg Neuts % (Manual) Lymphocytes % (Manual) Monocytes % (Manual) Eosinophils % (Manual) Basophils % (Manual) Abs Neuts (Manual) Abs Lymphs (Manual) Abs Monocytes (Manual) Absolute Eos (Manual) Abs Basophils (Manual) Platelet Comment Polychromasia Hypochromasia Poikilocytosis Anisocytosis Microcytosis Ovalocytes Retic Count (auto) PT INR APTT Sodium Potassium Chloride Carbon Dioxide Anion Gap BUN Creatinine Est GFR ( Amer) Est GFR (MDRD) Non-Af Glucose POC Glucose Hemoglobin A1c % Lactic Acid Calcium Phosphorus 4.0 Magnesium 2.2 Iron 19.5 L TIBC 346 % Saturation 6 Transferrin Ferritin 13.80 Total Bilirubin Direct Bilirubin Neonat Total Bilirubin Neonat Direct Bilirubin Neonat Indirect Bili AST ALT Alkaline Phosphatase Ammonia < 8.7 L Creatine Kinase 44 CK-MB (CK-2) Troponin I Total Protein Albumin Amylase 78 Lipase 212.6 Vitamin B12 590.0 Folate 12.50 TSH Free T4 Urine Color Urine Appearance Urine pH Ur Specific [place] Urine Protein Urine Glucose (UA) Urine Ketones Urine Blood Urine Nitrite Urine Bilirubin Urine Urobilinogen Ur Leukocyte Esterase Urine WBC (Auto) Urine RBC (Auto) Urine Mucus (Auto) Urine Creatinine Protein/Creatinin Ratio Urine Total Protein Urine Ascorbic Acid Urine Opiates Screen Urine Methadone Screen Ur Barbiturates Screen Ur Phencyclidine Scrn Ur Amphetamines Screen U Benzodiazepines Scrn Urine Cocaine Screen U Marijuana (THC) Screen Serum Alcohol Blood Type Blood Type Confirm Antibody Screen Crossmatch 04/29/20 04/29/20 04/29/20 05:43 08:47 11:49 WBC RBC Hgb Hct MCV MCH MCHC RDW Plt Count Lymph % (Auto) Wilkes % (Auto) Eos % (Auto) Baso % (Auto) Reticulocyte # Absolute Neuts (auto) Absolute Lymphs (auto) Absolute Monos (auto) Absolute Eos (auto) Absolute Basos (auto) Total Counted Seg Neutrophils % Seg Neuts % (Manual) Lymphocytes % (Manual) Monocytes % (Manual) Eosinophils % (Manual) Basophils % (Manual) Abs Neuts (Manual) Abs Lymphs (Manual) Abs Monocytes (Manual) Absolute Eos (Manual) Abs Basophils (Manual) Platelet Comment Polychromasia Hypochromasia Poikilocytosis Anisocytosis Microcytosis Ovalocytes Retic Count (auto) PT INR APTT Sodium Potassium Chloride Carbon Dioxide Anion Gap BUN Creatinine Est GFR ( Amer) Est GFR (MDRD) Non-Af Glucose POC Glucose 169 H 150 H Hemoglobin A1c % Lactic Acid Calcium Phosphorus Magnesium Iron TIBC % Saturation Transferrin Ferritin Total Bilirubin Direct Bilirubin Neonat Total Bilirubin Neonat Direct Bilirubin Neonat Indirect Bili AST ALT Alkaline Phosphatase Ammonia Creatine Kinase CK-MB (CK-2) 1.02 Troponin I 0.041 Total Protein Albumin Amylase Lipase Vitamin B12 Folate TSH Free T4 Urine Color Urine Appearance Urine pH Ur Specific [place] Urine Protein Urine Glucose (UA) Urine Ketones Urine Blood Urine Nitrite Urine Bilirubin Urine Urobilinogen Ur Leukocyte Esterase Urine WBC (Auto) Urine RBC (Auto) Urine Mucus (Auto) Urine Creatinine Protein/Creatinin Ratio Urine Total Protein Urine Ascorbic Acid Urine Opiates Screen Urine Methadone Screen Ur Barbiturates Screen Ur Phencyclidine Scrn Ur Amphetamines Screen U Benzodiazepines Scrn Urine Cocaine Screen U Marijuana (THC) Screen Serum Alcohol Blood Type Blood Type Confirm Antibody Screen Crossmatch 04/29/20 04/29/20 04/29/20 11:53 11:53 16:16 WBC RBC Hgb Hct MCV MCH MCHC RDW Plt Count Lymph % (Auto) Wilkes % (Auto) Eos % (Auto) Baso % (Auto) Reticulocyte # Absolute Neuts (auto) Absolute Lymphs (auto) Absolute Monos (auto) Absolute Eos (auto) Absolute Basos (auto) Total Counted Seg Neutrophils % Seg Neuts % (Manual) Lymphocytes % (Manual) Monocytes % (Manual) Eosinophils % (Manual) Basophils % (Manual) Abs Neuts (Manual) Abs Lymphs (Manual) Abs Monocytes (Manual) Absolute Eos (Manual) Abs Basophils (Manual) Platelet Comment Polychromasia Hypochromasia Poikilocytosis Anisocytosis Microcytosis Ovalocytes Retic Count (auto) PT INR APTT Sodium Potassium Chloride Carbon Dioxide Anion Gap BUN Creatinine Est GFR ( Amer) Est GFR (MDRD) Non-Af Glucose POC Glucose 282 H Hemoglobin A1c % Lactic Acid Calcium Phosphorus Magnesium Iron TIBC % Saturation Transferrin Ferritin Total Bilirubin Direct Bilirubin Neonat Total Bilirubin Neonat Direct Bilirubin Neonat Indirect Bili AST ALT Alkaline Phosphatase Ammonia Creatine Kinase 40 CK-MB (CK-2) 1.24 Troponin I 0.033 Total Protein Albumin Amylase Lipase Vitamin B12 Folate TSH Free T4 Urine Color Urine Appearance Urine pH Ur Specific [place] Urine Protein Urine Glucose (UA) Urine Ketones Urine Blood Urine Nitrite Urine Bilirubin Urine Urobilinogen Ur Leukocyte Esterase Urine WBC (Auto) Urine RBC (Auto) Urine Mucus (Auto) Urine Creatinine Protein/Creatinin Ratio Urine Total Protein Urine Ascorbic Acid Urine Opiates Screen Urine Methadone Screen Ur Barbiturates Screen Ur Phencyclidine Scrn Ur Amphetamines Screen U Benzodiazepines Scrn Urine Cocaine Screen U Marijuana (THC) Screen Serum Alcohol Blood Type Blood Type Confirm Antibody Screen Crossmatch 04/29/20 04/29/20 04/29/20 16:35 16:35 19:51 WBC 7.7 RBC 2.97 L Hgb 6.6 L Hct 21.5 L MCV 72 L MCH 22.3 L MCHC 30.8 L RDW 15.8 H Plt Count 294 Lymph % (Auto) Not Reportable Wilkes % (Auto) Not Reportable Eos % (Auto) Not Reportable Baso % (Auto) Not Reportable Reticulocyte # Absolute Neuts (auto) Not Reportable Absolute Lymphs (auto) Not Reportable Absolute Monos (auto) Not Reportable Absolute Eos (auto) Not Reportable Absolute Basos (auto) Not Reportable Total Counted 100 Seg Neutrophils % Not Reportable Seg Neuts % (Manual) 72 Lymphocytes % (Manual) 19 Monocytes % (Manual) 7 Eosinophils % (Manual) 2 Basophils % (Manual) 0 Abs Neuts (Manual) 5.5 Abs Lymphs (Manual) 1.5 Abs Monocytes (Manual) 0.5 Absolute Eos (Manual) 0.2 Abs Basophils (Manual) 0.0 Platelet Comment ADEQUATE Polychromasia SLIGHT Hypochromasia SLIGHT Poikilocytosis SLIGHT Anisocytosis SLIGHT Microcytosis 1+ Ovalocytes SLIGHT Retic Count (auto) PT INR APTT Sodium Potassium Chloride Carbon Dioxide Anion Gap BUN Creatinine Est GFR ( Amer) Est GFR (MDRD) Non-Af Glucose POC Glucose Hemoglobin A1c % Lactic Acid Calcium Phosphorus Magnesium Iron TIBC % Saturation Transferrin Ferritin Total Bilirubin Direct Bilirubin Neonat Total Bilirubin Neonat Direct Bilirubin Neonat Indirect Bili AST ALT Alkaline Phosphatase Ammonia Creatine Kinase 47 CK-MB (CK-2) 1.23 Troponin I 0.032 Total Protein Albumin Amylase Lipase Vitamin B12 Folate TSH Free T4 Urine Color Urine Appearance Urine pH Ur Specific [place] Urine Protein Urine Glucose (UA) Urine Ketones Urine Blood Urine Nitrite Urine Bilirubin Urine Urobilinogen Ur Leukocyte Esterase Urine WBC (Auto) Urine RBC (Auto) Urine Mucus (Auto) Urine Creatinine Protein/Creatinin Ratio Urine Total Protein Urine Ascorbic Acid Urine Opiates Screen Urine Methadone Screen Ur Barbiturates Screen Ur Phencyclidine Scrn Ur Amphetamines Screen U Benzodiazepines Scrn Urine Cocaine Screen U Marijuana (THC) Screen Serum Alcohol Blood Type Blood Type Confirm Antibody Screen Crossmatch 04/29/20 04/29/20 21:24 22:00 WBC RBC Hgb Hct MCV MCH MCHC RDW Plt Count Lymph % (Auto) [place]kes % (Auto) Eos % (Auto) Baso % (Auto) Reticulocyte # Absolute Neuts (auto) Absolute Lymphs (auto) Absolute Monos (auto) Absolute Eos (auto) Absolute Basos (auto) Total Counted Seg Neutrophils % Seg Neuts % (Manual) Lymphocytes % (Manual) Monocytes % (Manual) Eosinophils % (Manual) Basophils % (Manual) Abs Neuts (Manual) Abs Lymphs (Manual) Abs Monocytes (Manual) Absolute Eos (Manual) Abs Basophils (Manual) Platelet Comment Polychromasia Hypochromasia Poikilocytosis Anisocytosis Microcytosis Ovalocytes Retic Count (auto) PT INR APTT Sodium Potassium Chloride Carbon Dioxide Anion Gap BUN Creatinine Est GFR ( Amer) Est GFR (MDRD) Non-Af Glucose POC Glucose 215 H Hemoglobin A1c % Lactic Acid Calcium Phosphorus Magnesium Iron TIBC % Saturation Transferrin Ferritin Total Bilirubin Direct Bilirubin Neonat Total Bilirubin Neonat Direct Bilirubin Neonat Indirect Bili AST ALT Alkaline Phosphatase Ammonia Creatine Kinase CK-MB (CK-2) Troponin I Total Protein Albumin Amylase Lipase Vitamin B12 Folate TSH Free T4 Urine Color Urine Appearance Urine pH Ur Specific [place] Urine Protein Urine Glucose (UA) Urine Ketones Urine Blood Urine Nitrite Urine Bilirubin Urine Urobilinogen Ur Leukocyte Esterase Urine WBC (Auto) Urine RBC (Auto) Urine Mucus (Auto) Urine Creatinine Protein/Creatinin Ratio Urine Total Protein Urine Ascorbic Acid Urine Opiates Screen Urine Methadone Screen Ur Barbiturates Screen Ur Phencyclidine Scrn Ur Amphetamines Screen U Benzodiazepines Scrn Urine Cocaine Screen U Marijuana (THC) Screen Serum Alcohol Blood Type Blood Type Confirm B POSITIVE Antibody Screen Crossmatch Abdomen/Pelvis CT 04/29/20 00:00 IMPRESSION: 1. Mass involving the lower uterine segment with heterogeneous appearance and central calcifications, most consistent with a uterine leiomyoma. This appears contiguous with the uterine cervix. The cervix has an irregular appearance and an underlying cervical mass is not excluded. Direct visualization is recommended. 2. Large amount of debris/hemorrhage in the vagina. Head CT 04/29/20 00:16 IMPRESSION: No convincing acute findings. Presumed sequela of old infarcts. Consider MRI if there is concern for acute infarct. Chest X-Ray 04/29/20 00:53 IMPRESSION: No acute abnormality is identified. Mild pulmonary hyperinflation, The patient is to EKG shows sinus rhythm. LVH with strain pattern. Cannot rule out diffuse ischemia. IMPRESSION/Recommendation: 1. Syncope: This is most likely cardiogenic. The patient is clinical findings of severe aortic stenosis. Also the patient has a tricuspid regurgitant murmur the patient has a history of COPD hence need to assess for pulmonary hypertension also. Await echocardiogram. The patient syncope is most likely arrhythmogenic. Since the patient was sitting down and there was no exertional syncope. Hence continue to monitor the patient's rhythm. 2. Severe anemia: Most likely secondary to vaginal bleed. AUTOMATION OPERATOR has been consulted. Would recommend transfusing with packed RBCs to get the hemoglobin to 10 or above. 3. Aortic stenosis severe by examination. Need to be sure that this is not critical. Recommend echocardiogram 4. Need to assess for pulmonary hypertension: Hence await echocardiogram. 5. Diabetes mellitus: 6. COPD. Appears to be stable. 7. History of CVA with residual mild right-sided hemiparesis. 8. Hearing and speech impaired:? Mental retardation also. Await patient's echocardiogram. Medications reviewed. Medical regimen and management plan discussed with Dr. Pack. Medical decision making is of high complexity. 60 minutes spent with patient more than 50% of time spent direct patient care. Will follow. If the patient's aortic stenosis seems to be severe or critical we will discuss with the tertiary care center [employer] history teacher to see if there are any options for valve replacement. Follow.
[2020-04-29 20:05] LABS: HEMATOCRIT 21.5 % (36.0-47.0); MEAN CORPUSCULAR HEMOGLOBIN 22.3 pg (27.0-33.4); MEAN CORPUSCULAR HGB CONC 30.8 g/dL (32.0-36.0); MEAN CORPUSCULAR VOLUME 72 fl (80-97); PLATELET COUNT 294 10^3/uL (150-450); RED BLOOD COUNT 2.97 10^6/uL (3.72-5.28); RED CELL DISTRIBUTION WIDTH 15.8 % (11.5-14.0); WHITE BLOOD COUNT 7.7 10^3/uL (4.0-10.5)
[2020-04-29 20:28] LABS: HEMOGLOBIN 6.6 g/dL (12.0-15.5)
[2020-04-29 20:43] LABS: ABSOLUTE LYMPHOCYTES# (MANUAL) 1.5 10^3/uL (0.5-4.7); ABSOLUTE MONOCYTES # (MANUAL) 0.5 10^3/uL (0.1-1.4); BASOPHILS % (MANUAL) 0 % (0-2); EOSINOPHILS % (MANUAL) 2 % (0-6); LYMPHOCYTES % (MANUAL) 19 % (13-45); MONOCYTES % (MANUAL) 7 % (3-13); SEGMENTED NEUTROPHILS % (MAN) 72 % (42-78); TOTAL CELLS COUNTED 100
[2020-04-29 20:45] LABS: ANISOCYTOSIS SLIGHT; HYPOCHROMASIA SLIGHT; OVALOCYTES SLIGHT; PLATELET COMMENT ADEQUATE; POIKILOCYTOSIS SLIGHT; POLYCHROMASIA SLIGHT
--- NOTE | 2020-04-29 21:00 | PDOC H&P ---
History of Present Illness Admission Date/PCP: 04/29/20 03:25 CELESTE AGUSTIN MD History of Present Illness: TABBY DEVI is a 54 year old female, She was brought to the emergency room last night for evaluation of generalized body weakness, History taking was a challenge, she has a history of CVA with residual right-sided hemiparesis, diabetes mellitus, COPD in the emergency room there was a question of ST elevation on EKG, patient did not have any chest symptoms, the cardiac enzymes was not elevated, when I saw the EKG this afternoon, there was ST segment depression but did not appreciate any ST segment elevation it was sinus rhythm more importantly patient was anemic and she was actively bleeding vaginally with clots because of this finding I ordered a CT scan of the abdomen and pelvis with IV contrast demonstrated a mass at the left lower uterine segment with hypodense attenuation and central calcification contiguous with the uterus that measured 5.3 x 4.0 m this appears to involve the lower uterus and possibly the cervix. Past Medical History Pulmonary Medical History: Reports: Chronic Obstructive Pulmonary Disease (COPD) Neurological Medical History: Reports: Ischemic CVA Endocrine Medical History: Reports: Diabetes Mellitus Type 2 Social History Smoking Status: Former Smoker Number of Years Smokin Frequency of Alcohol Use: Rare Hx Recreational Drug Use: No Drugs: None Hx Prescription Drug Abuse: No Family History Family History: Reviewed & Not Pertinent Parental Family History Reviewed: Yes Children Family History Reviewed: Yes Sibling(s) Family History Reviewed.: Yes Medication/Allergy Home Medications: No Home Medications 04/29/20 Allergies/Adverse Reactions: No Known Allergies Allergy (Unverified 04/28/20 20:41) Review of Systems ROS unobtainable: Other - hearing impaired ,speech impaired Physical Exam Vital Signs: Temp Pulse Resp BP Pulse Ox 98.3 F 98 16 131/69 H 100 04/29/20 16:15 04/29/20 16:15 04/29/20 16:15 04/29/20 16:15 04/29/20 16:15 Intake & Output 04/28/20 04/29/20 04/30/20 06:59 06:59 06:59 Intake Total 630 Balance 630 Weight 46.6 kg General appearance: PRESENT: no acute distress Eye exam: PRESENT: conjunctiva pale, PERRLA Respiratory exam: PRESENT: clear to auscultation jean-paul Cardiovascular exam: PRESENT: +S1, +S2 GI/Abdominal exam: PRESENT: soft Neurological exam: PRESENT: alert Results Laboratory Results: 04/29/20 19:51 04/28/20 21:03 04/28/20 04/28/20 04/28/20 21:03 21:03 21:03 WBC 12.7 H RBC 3.52 L Hgb 7.8 L Hct 25.7 L MCV 73 L MCH 22.1 L MCHC 30.3 L RDW 16.6 H Plt Count 416 Seg Neutrophils % 85.6 H Retic Count (auto) Sodium 137.9 Potassium 4.9 Chloride 103 Carbon Dioxide 24 Anion Gap 11 BUN 12 Creatinine 0.82 Est GFR ( Amer) > 60 Glucose 278 H Lactic Acid Calcium 9.7 Phosphorus Magnesium 2.1 Iron TIBC % Saturation Transferrin Ferritin Total Bilirubin 0.3 AST 21 Alkaline Phosphatase 128 H Ammonia Total Protein 8.5 H Albumin 4.2 Amylase Lipase Vitamin B12 Folate TSH 6.17 H Free T4 1.29 Urine Color Urine Appearance Urine pH Ur Specific [place] Urine Protein Urine Glucose (UA) Urine Ketones Urine Blood Urine Nitrite Ur Leukocyte Esterase Urine WBC (Auto) Urine RBC (Auto) Blood Type Antibody Screen 04/28/20 04/28/20 04/29/20 21:03 21:03 00:35 WBC RBC Hgb Hct MCV MCH MCHC RDW Plt Count Seg Neutrophils % Retic Count (auto) 2.68 Sodium Potassium Chloride Carbon Dioxide Anion Gap BUN Creatinine Est GFR ( Amer) Glucose Lactic Acid Calcium Phosphorus Magnesium Iron TIBC % Saturation Transferrin 312.78 Ferritin Total Bilirubin AST Alkaline Phosphatase Ammonia Total Protein Albumin Amylase Lipase Vitamin B12 Folate TSH Free T4 Urine Color RED Urine Appearance CLOUDY Urine pH 5.0 Ur Specific [place] 1.020 Urine Protein 100 H Urine Glucose (UA) NEGATIVE Urine Ketones NEGATIVE Urine Blood LARGE H Urine Nitrite NEGATIVE Ur Leukocyte Esterase SMALL H Urine WBC (Auto) 103 Urine RBC (Auto) >182 Blood Type Antibody Screen 04/29/20 04/29/20 04/29/20 01:50 01:50 05:43 WBC RBC Hgb Hct MCV MCH MCHC RDW Plt Count Seg Neutrophils % Retic Count (auto) Sodium Potassium Chloride Carbon Dioxide Anion Gap BUN Creatinine Est GFR ( Amer) Glucose Lactic Acid 1.1 Calcium Phosphorus 4.0 Magnesium 2.2 Iron TIBC % Saturation Transferrin Ferritin Total Bilirubin AST Alkaline Phosphatase Ammonia Total Protein Albumin Amylase 78 Lipase 212.6 Vitamin B12 Folate TSH Free T4 Urine Color Urine Appearance Urine pH Ur Specific [place] Urine Protein Urine Glucose (UA) Urine Ketones Urine Blood Urine Nitrite Ur Leukocyte Esterase Urine WBC (Auto) Urine RBC (Auto) Blood Type B POSITIVE Antibody Screen NEGATIVE 04/29/20 04/29/20 04/29/20 05:43 05:43 19:51 WBC 7.7 RBC 2.97 L Hgb 6.6 L Hct 21.5 L MCV 72 L MCH 22.3 L MCHC 30.8 L RDW 15.8 H Plt Count 294 Seg Neutrophils % Not Reportable Retic Count (auto) Sodium Potassium Chloride Carbon Dioxide Anion Gap BUN Creatinine Est GFR ( Amer) Glucose Lactic Acid Calcium Phosphorus Magnesium Iron 19.5 L TIBC 346 % Saturation 6 Transferrin Ferritin 13.80 Total Bilirubin AST Alkaline Phosphatase Ammonia < 8.7 L Total Protein Albumin Amylase Lipase Vitamin B12 590.0 Folate 12.50 TSH Free T4 Urine Color Urine Appearance Urine pH Ur Specific [place] Urine Protein Urine Glucose (UA) Urine Ketones Urine Blood Urine Nitrite Ur Leukocyte Esterase Urine WBC (Auto) Urine RBC (Auto) Blood Type Antibody Screen 04/28/20 04/29/20 04/29/20 21:03 01:50 05:43 Creatine Kinase 44 CK-MB (CK-2) Troponin I 0.041 0.037 04/29/20 04/29/20 04/29/20 05:43 11:53 11:53 Creatine Kinase 40 CK-MB (CK-2) 1.02 1.24 Troponin I 0.041 0.033 04/29/20 04/29/20 16:35 16:35 Creatine Kinase 47 CK-MB (CK-2) 1.23 Troponin I 0.032 Impressions: Abdomen/Pelvis CT 04/29/20 00:00 IMPRESSION: 1. Mass involving the lower uterine segment with heterogeneous appearance and central calcifications, most consistent with a uterine leiomyoma. This appears contiguous with the uterine cervix. The cervix has an irregular appearance and an underlying cervical mass is not excluded. Direct visualization is recommended. 2. Large amount of debris/hemorrhage in the vagina. Head CT 04/29/20 00:16 IMPRESSION: No convincing acute findings. Presumed sequela of old infarcts. Consider MRI if there is concern for acute infarct. Chest X-Ray 04/29/20 00:53 IMPRESSION: No acute abnormality is identified. Mild pulmonary hyperinflation Assessment & Plan - Diagnosis (1) Vaginal bleeding Is this a current diagnosis for this admission?: Yes Plan: She has vaginal bleeding, CT scan of the abdomen and pelvis demonstrated a mass in the uterus, most likely the source of the bleed, There is no LOADER OPERATOR SUPERVISOR on-call in this hospital this weekend, if this bleeding continues may need to transfer patient to another hospital with LOADER OPERATOR SUPERVISOR service (2) Anemia Qualifiers: Anemia type: other cause Other causes of anemia: acute posthemorrhagic Qualified Code(s): D62 - Acute posthemorrhagic anemia Is this a current diagnosis for this admission?: Yes Plan: Transfuse 4 units of packed red blood cells (3) Uterine mass Is this a current diagnosis for this admission?: Yes Plan: Consult LOADER OPERATOR SUPERVISOR on-call (4) T2DM (type 2 diabetes mellitus) Qualifiers: Diabetes mellitus nursing home insulin use: without straddle truck operator use Diabetes mellitus complication status: without complication Qualified Code(s): E11.9 - Type 2 diabetes mellitus without complications Is this a current diagnosis for this admission?: Yes Plan: The hemoglobin A1c is 6.8, this is probably falsely normal because she is anemic, she is not very compliant with her diabetic care, does not follow-up in the office on a regular basis
--- NOTE | 2020-04-29 23:40 | PDOC CONSULTATION ---
Consultation Consult Date: 04/29/20 Provider Consulted: GASTON CELESTIN Consult reason:: vaginal bleeding History of Present Illness Admission Date/PCP: 04/29/20 03:25 CELESTE AGUSTIN MD History of Present Illness: TABBY DEVI is a 54 year old female admitted with multiple medical problems. Patient is a very poor historian and the history was by her sister. Stated she had not gone through menopause have been having regular periods but has noted that in the last 2 weeks to have heavier bleeding than normal. She denied the patient had any increased pain or other problems. Also has been many many years since she had Pap smears are a PLATE STRAIGHTENER exam. Past Medical History Pulmonary Medical History: Reports: Chronic Obstructive Pulmonary Disease (COPD) Neurological Medical History: Reports: Ischemic CVA Endocrine Medical History: Reports: Diabetes Mellitus Type 1, Diabetes Mellitus Type 2 Psychiatric Medical History: Denies: Depression Social History Smoking Status: Former Smoker Number of Years Smokin Frequency of Alcohol Use: Rare Hx Recreational Drug Use: No Drugs: None Hx Prescription Drug Abuse: No Family History Family History: Reviewed & Not Pertinent Parental Family History Reviewed: No Children Family History Reviewed: No Sibling(s) Family History Reviewed.: No Medication/Allergy Home Medications: No Home Medications 04/29/20 Allergies/Adverse Reactions: No Known Allergies Allergy (Unverified 04/28/20 20:41) Physical Exam - Physical Exam Vital Signs: Temp Pulse Resp BP Pulse Ox 98.2 F 108 H 22 H 124/73 100 04/29/20 23:22 04/29/20 23:22 04/29/20 23:22 04/29/20 23:22 04/29/20 23:22 Intake & Output 04/28/20 04/29/20 04/30/20 06:59 06:59 06:59 Intake Total 630 Balance 630 Weight 46.6 kg - Gynecological Exam Labia: normal Introitus: normal Vagina: normal Cervix: other - Is a large, firm cervix with exophytic projections and is highly suspicious for cervical carcinoma. Uterus: other - Both to examine secondary to guarding by the patient but apparently it is enlarged as well as the lower uterine segment. Adhexa: other - Could not be adequately examined secondary to the patient's guarding. Result Laboratory Results: 04/29/20 19:51 04/28/20 21:03 04/28/20 04/28/20 04/28/20 21:03 21:03 21:03 WBC RBC Hgb Hct MCV MCH MCHC RDW Plt Count Seg Neutrophils % Retic Count (auto) 2.68 Lactic Acid Phosphorus Magnesium Iron TIBC % Saturation Transferrin 312.78 Ferritin Ammonia Amylase Lipase Vitamin B12 Folate TSH 6.17 H Free T4 1.29 Urine Color Urine Appearance Urine pH Ur Specific [place] Urine Protein Urine Glucose (UA) Urine Ketones Urine Blood Urine Nitrite Ur Leukocyte Esterase Urine WBC (Auto) Urine RBC (Auto) Blood Type Antibody Screen 04/29/20 04/29/20 04/29/20 00:35 01:50 01:50 WBC RBC Hgb Hct MCV MCH MCHC RDW Plt Count Seg Neutrophils % Retic Count (auto) Lactic Acid 1.1 Phosphorus Magnesium Iron TIBC % Saturation Transferrin Ferritin Ammonia Amylase Lipase Vitamin B12 Folate TSH Free T4 Urine Color RED Urine Appearance CLOUDY Urine pH 5.0 Ur Specific [place] 1.020 Urine Protein 100 H Urine Glucose (UA) NEGATIVE Urine Ketones NEGATIVE Urine Blood LARGE H Urine Nitrite NEGATIVE Ur Leukocyte Esterase SMALL H Urine WBC (Auto) 103 Urine RBC (Auto) >182 Blood Type B POSITIVE Antibody Screen NEGATIVE 04/29/20 04/29/20 04/29/20 05:43 05:43 05:43 WBC RBC Hgb Hct MCV MCH MCHC RDW Plt Count Seg Neutrophils % Retic Count (auto) Lactic Acid Phosphorus 4.0 Magnesium 2.2 Iron 19.5 L TIBC 346 % Saturation 6 Transferrin Ferritin 13.80 Ammonia < 8.7 L Amylase 78 Lipase 212.6 Vitamin B12 590.0 Folate 12.50 TSH Free T4 Urine Color Urine Appearance Urine pH Ur Specific [place] Urine Protein Urine Glucose (UA) Urine Ketones Urine Blood Urine Nitrite Ur Leukocyte Esterase Urine WBC (Auto) Urine RBC (Auto) Blood Type Antibody Screen 04/29/20 19:51 WBC 7.7 RBC 2.97 L Hgb 6.6 L Hct 21.5 L MCV 72 L MCH 22.3 L MCHC 30.8 L RDW 15.8 H Plt Count 294 Seg Neutrophils % Not Reportable Retic Count (auto) Lactic Acid Phosphorus Magnesium Iron TIBC % Saturation Transferrin Ferritin Ammonia Amylase Lipase Vitamin B12 Folate TSH Free T4 Urine Color Urine Appearance Urine pH Ur Specific [place] Urine Protein Urine Glucose (UA) Urine Ketones Urine Blood Urine Nitrite Ur Leukocyte Esterase Urine WBC (Auto) Urine RBC (Auto) Blood Type Antibody Screen 04/28/20 04/29/20 04/29/20 21:03 01:50 05:43 Creatine Kinase 44 CK-MB (CK-2) Troponin I 0.041 0.037 04/29/20 04/29/20 04/29/20 05:43 11:53 11:53 Creatine Kinase 40 CK-MB (CK-2) 1.02 1.24 Troponin I 0.041 0.033 04/29/20 04/29/20 16:35 16:35 Creatine Kinase 47 CK-MB (CK-2) 1.23 Troponin I 0.032 Impressions: Abdomen/Pelvis CT 04/29/20 00:00 IMPRESSION: 1. Mass involving the lower uterine segment with heterogeneous appearance and central calcifications, most consistent with a uterine leiomyoma. This appears contiguous with the uterine cervix. The cervix has an irregular appearance and an underlying cervical mass is not excluded. Direct visualization is recommended. 2. Large amount of debris/hemorrhage in the vagina. Head CT 04/29/20 00:16 IMPRESSION: No convincing acute findings. Presumed sequela of old infarcts. Consider MRI if there is concern for acute infarct. Chest X-Ray 04/29/20 00:53 IMPRESSION: No acute abnormality is identified. Mild pulmonary hyperinflation Assessment & Plan - Plan Summary Plan Summary: Agree with blood transfusion at this point and when the patient is medically stable. She will need to have most like an exam under anesthesia with cervical as well as endometrial biopsies. At this point I will do a pelvic ultrasound to try to delineate the size and extent of the lower uterine masses. Please let us know when she is medically cleared for procedures.
[2020-04-30 06:55] LABS: ALBUMIN 3.1 g/dL (3.5-5.0); ALKALINE PHOSPHATASE 80 U/L (38-126); ANION GAP 6 (5-19); ASPARTATE AMINO TRANSFERASE 19 U/L (14-36); BILIRUBIN,TOTAL 0.8 mg/dL (0.2-1.3); BLOOD UREA NITROGEN 10 mg/dL (7-20); CALCIUM 8.8 mg/dL (8.4-10.2); CARBON DIOXIDE 24 mmol/L (22-30); CHLORIDE 106 mmol/L (98-107); CHOLESTEROL 93.91 mg/dL (0-200); GLUCOSE 132 mg/dL (75-110); POTASSIUM 4.1 mmol/L (3.6-5.0); TOTAL PROTEIN 6.6 g/dL (6.3-8.2); TRIGLYCERIDES 92 mg/dL (<150)
[2020-04-30 07:12] LABS: DIRECT LDL < 30 mg/dL (<100)
[2020-04-30] MEDS: INSULIN LISPRO 100 UNIT/ML 3 ML VIAL SUBCUT SCH ×2 (08:51→12:18)
--- NOTE | 2020-04-30 09:45 | EKG REPORT ---
SEVERITY:- ABNORMAL ECG - SINUS RHYTHM ABNORMAL T, CONSIDER ISCHEMIA, DIFFUSE LEADS : Confirmed by: Kelley Argueta MD 30-Apr-2020 09:43:32
[2020-04-30 11:16] VITALS: BP 123/71
[2020-04-30 11:53] LABS: ABSOLUTE EOSINOPHILS # (AUTO) 0.1 10^3/uL (0.0-0.6); ABSOLUTE MONOCYTES (AUTO) 0.6 10^3/uL (0.1-1.4); ABSOLUTE NEUT (AUTO) 5.4 10^3/uL (1.7-8.2); BASOPHILS % (AUTO) 0.5 % (0-2); EOSINOPHILS % (AUTO) 1.7 % (0-6); HEMATOCRIT 44.9 % (36.0-47.0); LYMPHOCYTES % (AUTO) 14.2 % (13-45); MEAN CORPUSCULAR HEMOGLOBIN 28.3 pg (27.0-33.4); MEAN CORPUSCULAR HGB CONC 33.9 g/dL (32.0-36.0); MONOCYTES % (AUTO) 8.6 % (3-13); PLATELET COUNT 189 10^3/uL (150-450); RED BLOOD COUNT 5.38 10^6/uL (3.72-5.28); RED CELL DISTRIBUTION WIDTH 18.8 % (11.5-14.0); TOTAL CELLS COUNTED % (AUTO) 100 %; WHITE BLOOD COUNT 7.2 10^3/uL (4.0-10.5)
[2020-04-30 11:56] LABS: HEMOGLOBIN 15.2 g/dL (12.0-15.5); MEAN CORPUSCULAR VOLUME 84 fl (80-97)
--- NOTE | 2020-04-30 12:46 | XCELERA REPORT ---
[address] [address] Transthoracic Echocardiogram Report Name: TABBY DEVI Age: 54 yrs Gender: Female : 1965 Patient Status: Inpatient Patient Location: [address] [place], [place] [id number] Study Date: 04/29/2020 04:53 PM Height: 59 in Weight: 96 lb BSA: 1.3 m2 Procedure: A two-dimensional transthoracic echocardiogram with color flow and Doppler was performed. The study was technically limited with all images being suboptimal in quality. Reason For Study: SYNCOPE / History: SYNCOPE / . Ordering Physician: CELESTE AGUSTIN Performed By: Sarah Obrien Interpretation Summary There is normal left ventricular wall thickness. LV EF is 65% Left ventricular systolic function is normal. Doppler measurements suggest impaired left ventricular relaxation, which is associated with grade I/IV or mild diastThe left ventricle is normal in size. olic dysfunction The left ventricular wall motion is normal. There is no thrombus. No ASD,VSD or PFO seen. The right ventricle is grossly normal size. The right ventricle is not well visualized secondary to technical limitations The right atrium is normal. The left atrial size is normal. There is no evidence of mitral valve prolapse. There is no vegetation seen on the mitral valve. There is no mitral valve stenosis. There is a mild amount of mitral regurgitation There is a peak gradient of 65 mm of Hg ,and a mean gradient of 40.5 mm of Hg. Severe .Calculated ASAD = 0.83 cm2. There is a mild amount of aortic regurgitation There is no tricuspid stenosis. There is servere pulmonary hypertension by echo Probably mild to moderte TR.RVSP is 87 mm of Hg , with RA mean of 10. There is mild pulmonic stenosis There is no pulmonic valvular regurgitation. The aortic root is normal size. The inferior vena cava appeared normal and decreased > 50% with respiration (RAP 5-10 mmHg) Minimal pericardial effusion. MMode/2D Measurements & Calculations RVDd: 2.3 cm LVIDd: 3.9 cm FS: 39.8 % Ao root diam: 2.2 cm IVSd: 0.86 cm LVIDs: 2.3 cm EDV(Teich): 65.6 ml Ao root area: 3.8 cm2 LVPWd: 1.00 cm ESV(Teich): 19.0 ml LA dimension: 3.2 cm EF(Teich): 71.1 % LVOT diam: 1.8 cm LVOT area: 2.6 cm2 Doppler Measurements & Calculations MV E max winnie: MV P1/2t max winnie: Ao V2 max: AI max winnie: 101.8 cm/sec 101.0 cm/sec 400.9 cm/sec 376.8 cm/sec MV A max winnie: MV P1/2t: 60.7 msec Ao max PG: AI max P.7 cm/sec MVA(P1/2t): 3.6 cm2 64.3 mmHg 56.8 mmHg MV E/A: 0.67 MV dec slope: Ao V2 mean: AI dec slope: 298.3 cm/sec 315.6 cm/sec2 486.9 cm/sec2 Ao mean PG: AI P1/2t: MV dec time: 0.15 sec40.5 mmHg 349.7 msec Ao V2 VTI: 83.5 cm ASAD(I,D): 0.81 cm2 ASAD(V,D): 0.63 cm2 LV V1 max PG: SV(LVOT): 67.7 ml PA V2 max: TR max winnie: 3.8 mmHg 195.9 cm/sec 438.9 cm/sec LV V1 mean PG: PA max PG: TR max P.6 mmHg 15.3 mmHg 77.0 mmHg LV V1 max: 96.9 cm/sec LV V1 mean: 57.6 cm/sec LV V1 VTI: 26.0 cm AV P1/2t-pr_phl: MV P1/2t-pr_phl: 349.7 msec 60.7 msec Left Ventricle The left ventricle is normal in size. There is normal left ventricular wall thickness. LV EF is 65%. Left ventricular systolic function is normal. Doppler measurements suggest impaired left ventricular relaxation, which is associated with grade I/IV or mild diastolic dysfunction. The left ventricular wall motion is normal. There is no thrombus. No ASD,VSD or PFO seen. Right Ventricle The right ventricle is grossly normal size. The right ventricle is not well visualized secondary to technical limitations. Atria The right atrium is normal. The left atrial size is normal. Mitral Valve There is no evidence of mitral valve prolapse. There is no vegetation seen on the mitral valve. There is no mitral valve stenosis. There is a mild amount of mitral regurgitation. Aortic Valve There is a peak gradient of 65 mm of Hg ,and a mean gradient of 40.5 mm of Hg. Severe .Calculated ASAD = 0.83 cm2. There is a mild amount of aortic regurgitation. Tricuspid Valve There is no tricuspid stenosis. There is servere pulmonary hypertension by echo. Probably mild to moderte TR.RVSP is 87 mm of Hg , with RA mean of 10. Pulmonic Valve There is mild pulmonic stenosis. There is no pulmonic valvular regurgitation. Great Vessels The aortic root is normal size. The inferior vena cava appeared normal and decreased > 50% with respiration (RAP 5-10 mmHg). Effusions Minimal pericardial effusion. : CELESTE AGUSTIN Lakshmi
--- NOTE | 2020-04-30 13:06 | Progress Note ---
Provider Note Provider Note: CARDIOLOGY PROGRESS NOTE by Dr. Kelley Argueta on 04/30/2020. SUBJECTIVE: The patient appears to be comfortable. She denies any chest pain or discomfort. There is no shortness of breath. The patient's hemoglobin is up after blood transfusions. There is no arrhythmias seen on the monitor. There is no recurrence of syncope. There is no recurrent symptoms of TIA CVA. There is no symptoms of acute exacerbation of COPD. PHYSICAL EXAMINATION: The patient is a frail build. But in no acute distress. Selected Entries 04/30/20 11:15 Temperature 98.2 F Temperature Oral Source Pulse Rate 84 Respiratory 16 Rate Blood Pressure 123/71 Right Upper Arm Blood Pressure 88 Mean right Upper Arm Blood Pressure Supine Position right Upper Arm O2 Sat by Pulse 100 Oximetry Oxygen Delivery Room Air Method ( includes room air) HEAD: Is atraumatic normocephalic. EYES: Pupils are equal round regular reactive light and there is conjunctival pallor. There is no scleral icterus. Accommodation. Extraocular movements are normal. EARS: Tympanic membranes are intact. External auditory canals are clear. NOSE: There is no deviated nasal septum. There is no inflammation of the nasal mucous membrane. MOUTH: Mucous membranes of the mouth are moist. Tongue is moist. There is no ulcers. There is no bleeding from the gums. THROAT: There is no redness of the oropharynx. There is no exudates. SKIN: There is no skin rashes. There is no petechia or ecchymosis. There is no skin lesions. NECK: Is supple. There is no JVD. Carotids equal there is carotid delay bilaterally. There is transmitted aortic murmur heard over the carotids. There is no lymphadenopathy. There is no goiter. There is no accessory muscle respiration use. Trachea central. LUNGS: Show diminished air entry prolonged expiration. There is no rhonchi rales or wheezing. HEART: S1-S2 is heard. There is no S3 gallop or S4 gallop. There is murmur of aortic stenosis with absent A2 sound. There is no thrill over the aortic area. There is murmur of tricuspid regurgitation present present. There is mild mitral regurgitation murmur present. There is no rub. ABDOMEN: Soft. Nontender. There is no paraspinal megaly. Bowel sounds are well heard. EXTREMITIES: Femorals are well felt. There is no femoral bruits. Leg pulses are well felt. There is no pedal edema. There is no DVT or cellulitis. There is no calf tenderness. There is no DVT or cellulitis. There is no cyanosis or clubbing. FILM SPOOLER: The patient is conscious awake with mild right-sided weakness. PSYCHIATRIC: The patient does not appear to be agitated or depressed. Full psychiatric examination could not be done due to patient being hearing impaired and speech impaired. ECHOCARDIOGRAM: There is normal left ventricular wall thickness. LV EF is 65% Left ventricular systolic function is normal. Doppler measurements suggest impaired left ventricular relaxation, which is associated with grade I/IV or mild diastThe left ventricle is normal in size. olic dysfunction The left ventricular wall motion is normal. There is no thrombus. No ASD,VSD or PFO seen. The right ventricle is grossly normal size. The right ventricle is not well visualized secondary to technical limitations The right atrium is normal. The left atrial size is normal. There is no evidence of mitral valve prolapse. There is no vegetation seen on the mitral valve. There is no mitral valve stenosis. There is a mild amount of mitral regurgitation There is a peak gradient of 65 mm of Hg ,and a mean gradient of 40.5 mm of Hg. Severe .Calculated ASAD = 0.83 cm2. There is a mild amount of aortic regurgitation There is no tricuspid stenosis. There is servere pulmonary hypertension by echo Probably mild to moderte TR.RVSP is 87 mm of Hg , with RA mean of 10. There is mild pulmonic stenosis There is no pulmonic valvular regurgitation. The aortic root is normal size. The inferior vena cava appeared normal and decreased > 50% with respiration (RAP 5-10 mmHg) Minimal pericardial effusion. Abdomen/Pelvis CT 04/29/20 00:00 IMPRESSION: 1. Mass involving the lower uterine segment with heterogeneous appearance and central calcifications, most consistent with a uterine leiomyoma. This appears contiguous with the uterine cervix. The cervix has an irregular appearance and an underlying cervical mass is not excluded. Direct visualization is r ecommended. 2. Large amount of debris/hemorrhage in the vagina. Head CT 04/29/20 00:16 IMPRESSION: No convincing acute findings. Presumed sequela of old infarcts. Consider MRI if there is concern for acute infarct. Chest X-Ray 04/29/20 00:53 IMPRESSION: No acute abnormality is identified. Mild pulmonary hyperinflation Labs- All tests 24 hr 04/29/20 04/29/20 04/29/20 01:50 11:53 16:16 WBC RBC Hgb Hct MCV MCH MCHC RDW Plt Count Lymph % (Auto) Preble % (Auto) Eos % (Auto) Baso % (Auto) Absolute Neuts (auto) Absolute Lymphs (auto) Absolute Monos (auto) Absolute Eos (auto) Absolute Basos (auto) Total Counted Seg Neutrophils % Seg Neuts % (Manual) Lymphocytes % (Manual) Monocytes % (Manual) Eosinophils % (Manual) Basophils % (Manual) Abs Neuts (Manual) Abs Lymphs (Manual) Abs Monocytes (Manual) Absolute Eos (Manual) Abs Basophils (Manual) Platelet Estimate Platelet Comment Polychromasia Hypochromasia Poikilocytosis Anisocytosis Microcytosis Ovalocytes Sodium Potassium Chloride Carbon Dioxide Anion Gap BUN Creatinine Est GFR ( Amer) Est GFR (MDRD) Non-Af Glucose POC Glucose 282 H Hemoglobin A1c % Calcium Total Bilirubin Direct Bilirubin Neonat Total Bilirubin Neonat Direct Bilirubin Neonat Indirect Bili AST ALT Alkaline Phosphatase Creatine Kinase CK-MB (CK-2) 1.24 Troponin I 0.033 Total Protein Albumin Triglycerides Cholesterol LDL Cholesterol Direct VLDL Cholesterol HDL Cholesterol Slides for Path Review Blood Type B POSITIVE Blood Type Confirm B POSITIVE Antibody Screen NEGATIVE Crossmatch See Detail 04/29/20 04/29/20 04/29/20 16:35 16:35 19:51 WBC 7.7 RBC 2.97 L Hgb 6.6 L Hct 21.5 L MCV 72 L MCH 22.3 L MCHC 30.8 L RDW 15.8 H Plt Count 294 Lymph % (Auto) Not Reportable Preble % (Auto) Not Reportable Eos % (Auto) Not Reportable Baso % (Auto) Not Reportable Absolute Neuts (auto) Not Reportable Absolute Lymphs (auto) Not Reportable Absolute Monos (auto) Not Reportable Absolute Eos (auto) Not Reportable Absolute Basos (auto) Not Reportable Total Counted 100 Seg Neutrophils % Not Reportable Seg Neuts % (Manual) 72 Lymphocytes % (Manual) 19 Monocytes % (Manual) 7 Eosinophils % (Manual) 2 Basophils % (Manual) 0 Abs Neuts (Manual) 5.5 Abs Lymphs (Manual) 1.5 Abs Monocytes (Manual) 0.5 Absolute Eos (Manual) 0.2 Abs Basophils (Manual) 0.0 Platelet Estimate Platelet Comment ADEQUATE Polychromasia SLIGHT Hypochromasia SLIGHT Poikilocytosis SLIGHT Anisocytosis SLIGHT Microcytosis 1+ Ovalocytes SLIGHT Sodium Potassium Chloride Carbon Dioxide Anion Gap BUN Creatinine Est GFR ( Amer) Est GFR (MDRD) Non-Af Glucose POC Glucose Hemoglobin A1c % Calcium Total Bilirubin Direct Bilirubin Neonat Total Bilirubin Neonat Direct Bilirubin Neonat Indirect Bili AST ALT Alkaline Phosphatase Creatine Kinase 47 CK-MB (CK-2) 1.23 Troponin I 0.032 Total Protein Albumin Triglycerides Cholesterol LDL Cholesterol Direct VLDL Cholesterol HDL Cholesterol Slides for Path Review Blood Type Blood Type Confirm Antibody Screen Crossmatch 04/29/20 04/29/20 04/30/20 21:24 22:00 05:34 WBC Cancelled RBC Cancelled Hgb Cancelled Hct Cancelled MCV Cancelled MCH Cancelled MCHC Cancelled RDW Cancelled Plt Count Cancelled Lymph % (Auto) Cancelled Preble % (Auto) Cancelled Eos % (Auto) Cancelled Baso % (Auto) Cancelled Absolute Neuts (auto) Cancelled Absolute Lymphs (auto) Cancelled Absolute Monos (auto) Cancelled Absolute Eos (auto) Cancelled Absolute Basos (auto) Cancelled Total Counted Seg Neutrophils % Cancelled Seg Neuts % (Manual) Lymphocytes % (Manual) Monocytes % (Manual) Eosinophils % (Manual) Basophils % (Manual) Abs Neuts (Manual) Abs Lymphs (Manual) Abs Monocytes (Manual) Absolute Eos (Manual) Abs Basophils (Manual) Platelet Estimate Cancelled Platelet Comment Polychromasia Hypochromasia Poikilocytosis Anisocytosis Microcytosis Ovalocytes Sodium Potassium Chloride Carbon Dioxide Anion Gap BUN Creatinine Est GFR ( Amer) Est GFR (MDRD) Non-Af Glucose POC Glucose 215 H Hemoglobin A1c % Calcium Total Bilirubin Direct Bilirubin Neonat Total Bilirubin Neonat Direct Bilirubin Neonat Indirect Bili AST ALT Alkaline Phosphatase Creatine Kinase CK-MB (CK-2) Troponin I Total Protein Albumin Triglycerides Cholesterol LDL Cholesterol Direct VLDL Cholesterol HDL Cholesterol Slides for Path Review Cancelled Blood Type Blood Type Confirm B POSITIVE Antibody Screen Crossmatch 04/30/20 04/30/20 04/30/20 05:34 05:34 08:48 WBC RBC Hgb Hct MCV MCH MCHC RDW Plt Count Lymph % (Auto) Preble % (Auto) Eos % (Auto) Baso % (Auto) Absolute Neuts (auto) Absolute Lymphs (auto) Absolute Monos (auto) Absolute Eos (auto) Absolute Basos (auto) Total Counted Seg Neutrophils % Seg Neuts % (Manual) Lymphocytes % (Manual) Monocytes % (Manual) Eosinophils % (Manual) Basophils % (Manual) Abs Neuts (Manual) Abs Lymphs (Manual) Abs Monocytes (Manual) Absolute Eos (Manual) Abs Basophils (Manual) Platelet Estimate Platelet Comment Polychromasia Hypochromasia Poikilocytosis Anisocytosis Microcytosis Ovalocytes Sodium 135.8 L Potassium 4.1 Chloride 106 Carbon Dioxide 24 Anion Gap 6 BUN 10 Creatinine 0.73 Est GFR ( Amer) > 60 Est GFR (MDRD) Non-Af > 60 Glucose 132 H POC Glucose 140 H Hemoglobin A1c % 5.8 Calcium 8.8 Total Bilirubin 0.8 Direct Bilirubin 0.0 Neonat Total Bilirubin Not Reportable Neonat Direct Bilirubin Not Reportable Neonat Indirect Bili Not Reportable AST 19 ALT 8 Alkaline Phosphatase 80 Creatine Kinase CK-MB (CK-2) Troponin I Total Protein 6.6 Albumin 3.1 L Triglycerides 92 Cholesterol 93.91 LDL Cholesterol Direct < 30 VLDL Cholesterol 18.0 HDL Cholesterol 43 Slides for Path Review Blood Type Blood Type Confirm Antibody Screen Crossmatch 04/30/20 04/30/20 11:23 11:40 WBC 7.2 RBC 5.38 H Hgb 15.2 D Hct 44.9 MCV 84 D MCH 28.3 MCHC 33.9 RDW 18.8 H Plt Count 189 Lymph % (Auto) 14.2 Preble % (Auto) 8.6 Eos % (Auto) 1.7 Baso % (Auto) 0.5 Absolute Neuts (auto) 5.4 Absolute Lymphs (auto) 1.0 Absolute Monos (auto) 0.6 Absolute Eos (auto) 0.1 Absolute Basos (auto) 0.0 Total Counted Seg Neutrophils % 75.0 Seg Neuts % (Manual) Lymphocytes % (Manual) Monocytes % (Manual) Eosinophils % (Manual) Basophils % (Manual) Abs Neuts (Manual) Abs Lymphs (Manual) Abs Monocytes (Manual) Absolute Eos (Manual) Abs Basophils (Manual) Platelet Estimate Platelet Comment Polychromasia Hypochromasia Poikilocytosis Anisocytosis Microcytosis Ovalocytes Sodium Potassium Chloride Carbon Dioxide Anion Gap BUN Creatinine Est GFR ( Amer) Est GFR (MDRD) Non-Af Glucose POC Glucose 194 H Hemoglobin A1c % Calcium Total Bilirubin Direct Bilirubin Neonat Total Bilirubin Neonat Direct Bilirubin Neonat Indirect Bili AST ALT Alkaline Phosphatase Creatine Kinase CK-MB (CK-2) Troponin I Total Protein Albumin Triglycerides Cholesterol LDL Cholesterol Direct VLDL Cholesterol HDL Cholesterol Slides for Path Review Blood Type Blood Type Confirm Antibody Screen Crossmatch EKG:SINUS RHYTHM ABNORMAL T, CONSIDER ISCHEMIA, DIFFUSE LEADS IMPRESSION/Recommendation: 1. Syncope: This is most likely cardiogenic. The patient is clinical findings of severe aortic stenosis. The patient syncope is most likely arrhythmogenic. Since the patient was sitting down and there was no exertional syncope. No arrhythmias seen so far 2. Severe anemia: Most likely secondary to vaginal bleed. THIOKOL OPERATOR has seen the patient and Dr. Swanson suspects intrauterine mass. But the ASSISTANT INVENTORY MANAGER work-up will be pending further evaluation of the aortic valve status. After 4 units of packed RBCs the patient's hemoglobin is now 15.2. 3. Aortic stenosis severe by examination. The echo shows a peak gradient of 64 mmHg and a mean gradient of 40.5. Hence significant aortic stenosis. Would recommend transfer to tertiary care center for further evaluation of the valve, for possible aortic valve replacement. 4. Severe pulmonary hypertension:, By echocardiogram. This is most likely secondary to combination of aortic stenosis and COPD. 5. Diabetes mellitus: 6. COPD. Appears to be stable. 7. History of CVA with residual mild right-sided hemiparesis. 8. Hearing and speech impaired:? Mental retardation also. 9. Mild pulmonic stenosis by echocardiogram Medications reviewed. Medical regimen and management plan discussed with Dr. Pack. Discussed with the patient's sister regarding my condition transfer the patient tertiary [facility] center. She is agreeable. The case has been discussed with the Dr. Arcos,[facility]. He has accepted the patient. The patient sister is aware of the benefits and risks of transfer. Medical decision making is of high complexity. 50 minutes spent with patient more than 50% of time spent in direct patient care. Since patient is being transferred to a tertiary care center, which has been discussed with Dr. Pack. Will sign off the case.
--- NOTE | 2020-04-30 13:14 | PDOC TRANSFER SUMMARY ---
General Admission Date/PCP: 04/29/20 03:25 CELESTE AGUSTIN MD Transfer Date: 04/30/20 Accepting Facility: [facility] - Transfer Diagnosis (1) Vaginal bleeding Is this a current diagnosis for this admission?: Yes (2) Anemia Is this a current diagnosis for this admission?: Yes (3) Uterine mass Is this a current diagnosis for this admission?: Yes (4) T2DM (type 2 diabetes mellitus) Is this a current diagnosis for this admission?: Yes (5) Aortic valve stenosis, critical Is this a current diagnosis for this admission?: Yes (6) Syncope Is this a current diagnosis for this admission?: Yes - Transfer Medications Home Medications: No Home Medications 04/29/20 Transfer Medications: Current Medications Dextrose (Dextrose Inj 50% Syringe (25 Gm/50 Ml)) 12.5 gm IV PRN PRN; Protocol PRN Reason: FOR BG 50-69 IN ALERT PATIENT Stop: 05/29/20 04:44 Dextrose (Dextrose Inj 50% Syringe (25 Gm/50 Ml)) 25 gm IV PRN PRN; Protocol PRN Reason: PER PROTOCOL Stop: 05/29/20 04:44 Glucagon (Glucagen Inj 1 Mg Vial) 1 mg IM PRN PRN; Protocol PRN Reason: Evaluate for BG < 70 Stop: 05/29/20 04:44 Glucose (Glutose 40% Gel 15 Gm Tube) 15 gm PO PRN PRN; Protocol PRN Reason: FOR BG 50-69 IN ALERT PATIENT Stop: 05/29/20 04:44 Glucose (Glutose 40% Gel 15 Gm Tube) 30 gm PO PRN PRN; Protocol PRN Reason: FOR BG < 50 IN ALERT PATIENT Stop: 05/29/20 04:44 Insulin Human Lispro (Humalog Insulin 100 Unit/1 Ml 3 Ml Vial) 0 - 12 unit [facility]; Protocol Stop: 05/29/20 10:59 Last Admin: 04/30/20 12:18 Dose: Not Given Documented by: - Allergies Allergies/Adverse Reactions: No Known Allergies Allergy (Unverified 04/28/20 20:41) Hospital Course Hospital Course: Patient is a 54-year-old female with history of cerebral infarction with residual right-sided hemiparesis, diabetes mellitus type 2, chronic obstructive lung disease, hearing and speech impairment she was brought to the emergency room by family for evaluation of symptoms including syncope, generalized body weakness, in the emergency room she was found on the telemetry strips ST segment elevation there was a concern about the ST segment elevation, patient did not have any chest symptoms, the 12-lead EKG that was done did not demonstrate any ST segment elevation, there was ST segment depression. She was also found to be anemic with hemoglobin of 7.8, when I saw the patient she was actively bleeding vaginally with clots because of these findings I ordered a CAT scan of the abdomen and pelvis with IV contrast this demonstrated a mass at the lower uterine segment with hypodense attenuation and central calcification contiguous with the uterus measured 5.3 x 4.0 cm. Because of this concern with the EKG and the fact that she has syncope consultation was requested from Dr. Argueta, cardiology a 2D echo was done, 2D echo demonstrated normal left ventricular wall thickness she was found to have severe aortic valve stenosis calculated ASAD was 0.83 cm also from her severe pulmonary hypertension, patient may need gynecologic intervention because of the severe aortic valve stenosis this places patient at a higher risk of cardiovascular event in the perioperative period This aortic valve stenosis needs to be addressed before patient undergoes any gynecologic procedure. She was transfused with 4 units of blood because hemoglobin was 6.4 posttransfusion hemoglobin is 15. Dr. Argueta called the nursery attendant in [place], patient is accepted in transfer Physical Exam Vital Signs: Temp Pulse Resp BP Pulse Ox 98.2 F 84 16 123/71 100 04/30/20 11:15 04/30/20 11:15 04/30/20 11:15 04/30/20 11:15 04/30/20 11:15 Intake & Output 04/29/20 04/30/20 05/01/20 06:59 06:59 06:59 Intake Total 1230 890 Output Total 0 Balance 1230 890 Weight 46.6 kg 48.1 kg General appearance: PRESENT: no acute distress Eye exam: PRESENT: PERRLA Respiratory exam: PRESENT: clear to auscultation jean-paul Cardiovascular exam: PRESENT: +S1, +S2, systolic murmur GI/Abdominal exam: PRESENT: soft Results Laboratory Results: 04/30/20 11:40 04/30/20 05:34 04/29/20 04/29/20 04/30/20 01:50 19:51 05:34 WBC 7.7 Cancelled RBC 2.97 L Cancelled Hgb 6.6 L Cancelled Hct 21.5 L Cancelled MCV 72 L Cancelled MCH 22.3 L Cancelled MCHC 30.8 L Cancelled RDW 15.8 H Cancelled Plt Count 294 Cancelled Seg Neutrophils % Not Reportable Cancelled Sodium Potassium Chloride Carbon Dioxide Anion Gap BUN Creatinine Est GFR ( Amer) Glucose Calcium Total Bilirubin AST Alkaline Phosphatase Total Protein Albumin Triglycerides Cholesterol LDL Cholesterol Direct VLDL Cholesterol HDL Cholesterol Blood Type B POSITIVE Antibody Screen NEGATIVE 04/30/20 04/30/20 05:34 11:40 WBC 7.2 RBC 5.38 H Hgb 15.2 D Hct 44.9 MCV 84 D MCH 28.3 MCHC 33.9 RDW 18.8 H Plt Count 189 Seg Neutrophils % 75.0 Sodium 135.8 L Potassium 4.1 Chloride 106 Carbon Dioxide 24 Anion Gap 6 BUN 10 Creatinine 0.73 Est GFR ( Amer) > 60 Glucose 132 H Calcium 8.8 Total Bilirubin 0.8 AST 19 Alkaline Phosphatase 80 Total Protein 6.6 Albumin 3.1 L Triglycerides 92 Cholesterol 93.91 LDL Cholesterol Direct < 30 VLDL Cholesterol 18.0 HDL Cholesterol 43 Blood Type Antibody Screen 04/28/20 04/29/20 04/29/20 21:03 01:50 05:43 Creatine Kinase 44 CK-MB (CK-2) Troponin I 0.041 0.037 04/29/20 04/29/20 04/29/20 05:43 11:53 11:53 Creatine Kinase 40 CK-MB (CK-2) 1.02 1.24 Troponin I 0.041 0.033 04/29/20 04/29/20 16:35 16:35 Creatine Kinase 47 CK-MB (CK-2) 1.23 Troponin I 0.032 Impressions: Abdomen/Pelvis CT 04/29/20 00:00 IMPRESSION: 1. Mass involving the lower uterine segment with heterogeneous appearance and central calcifications, most consistent with a uterine leiomyoma. This appears contiguous with the uterine cervix. The cervix has an irregular appearance and an underlying cervical mass is not excluded. Direct visualization is recommended. 2. Large amount of debris/hemorrhage in the vagina. Head CT 04/29/20 00:16 IMPRESSION: No convincing acute findings. Presumed sequela of old infarcts. Consider MRI if there is concern for acute infarct. Chest X-Ray 04/29/20 00:53 IMPRESSION: No acute abnormality is identified. Mild pulmonary hyperinflation
== END 2020-04-30 15:30 | disposition short-term general hospital (02) | DRG 760 ==
LOC: ER 20:23 → EH 04-29 03:25 → 3W 04-29 05:04
PROVIDERS: ADMIT Internal Medicine; ATTEND Internal Medicine
PROC: 30233N1 Transfusion of Nonautologous Red Blood Cells into Peripheral Vein, Percutaneous Approach (ICD-10-PCS; principal; 2020-04-29)
PROC: B24BZZ4 Ultrasonography of Heart with Aorta, Transesophageal (ICD-10-PCS; 2020-04-29)
DX: N93.9 Abnormal uterine and vaginal bleeding, unspecified (principal); I69.351 Hemiplegia and hemiparesis following cerebral infarction affecting right dominant side; D62 Acute posthemorrhagic anemia; E11.9 Type 2 diabetes mellitus without complications; I35.0 Nonrheumatic aortic (valve) stenosis; H91.90 Unspecified hearing loss, unspecified ear; R47.9 Unspecified speech disturbances; J44.9 Chronic obstructive pulmonary disease, unspecified; I27.20 Pulmonary hypertension, unspecified; I07.1 Rheumatic tricuspid insufficiency; R55 Syncope and collapse; Z87.891 Personal history of nicotine dependence
CPT/HCPCS: 36415; 36430; 70450; 71045; 74177; 80053; 80061; 80307; 81001; 82140; 82150; 82550; 82553; 82570; 82607; 82728; 82746; 82962; 83036; 83540; 83550; 83605; 83690; 83735; 84100; 84156; 84439; 84443; 84466; 84484; 85025; 85045; 85610; 85730; 86850; 86900; 86901; 86920; 93005; 93010; 93306; 99285; G0378; J1650; J1815; P9016

== ENCOUNTER 2020-11-21 14:21 | Emergency (ER) | payer MEDICARE ==
[2020-11-21] MEDS ORDERED: LORAZEPAM INJ 2 MG/1 ML VIAL IV ONE (14:38)
[2020-11-21] MEDS ORDERED: LEVETIRACETAM 1000 MG/NACL-ISO 1,000 MG/100 ML RTUPB IV ONE (14:38)
[2020-11-21] MEDS ORDERED: NORMAL SALINE 500 ML IV ONE (14:45)
--- NOTE | 2020-11-21 14:47 | ER Document Report ---
ED Seizure - General Chief Complaint: Seizure Stated Complaint: POSSIBLE SEIZURE Time Seen by Provider: 11/21/20 14:32 Primary Care Provider: CELESTE AGUSTIN MD [Primary Care Provider] - Follow up as needed Notes: Patient is a 55-year-old female that comes emergency department by EMS for chief complaint of a seizure episode that lasted approximately 4 minutes. Sister states that she cannot tell from the camera if it was 1 complete seizure or 2 separate seizures. Patient appeared to become unresponsive with tonic-clonic jerking during the seizure. Patient was postictal afterwards but did not have additional seizure with EMS. Patient has been acting normally otherwise although sister states she appears to be getting gradually weaker. No fevers, injuries, or other complaints reported. Patient has a history of multiple CVAs, previous seizures a few months ago and was formally on Keppra with planned n eurology follow-up but this did not happen yet. Patient not currently on Keppra. Patient also has a history of cervical cancer and severe aortic stenosis, sister states that family and primary care provider Dr. Agustin felt patient was not a good surgical candidate or candidate for radiation/matt motherapy. Patient is not yet on palliative care but family is expecting a sooner than later. Patient has poor appetite and has not been eating well, has been losing weight rapidly. - Related Data Allergies/Adverse Reactions: No Known Allergies Allergy (Unverified 04/28/20 20:41) Past Medical History - General Information source: Patient, Relative - Social History Smoking Status: Never Smoker Frequency of alcohol use: None Drug Abuse: None Lives with: Family Family History: Reviewed & Not Pertinent Pulmonary Medical History: Reports: Hx COPD Endocrine Medical History: Reports: Hx Diabetes Mellitus Type 2 Malignancy Medical History: Reports: Hx Cervical Cancer Psychiatric Medical History: Denies: Hx Depression - Immunizations Hx Diphtheria, Pertussis, Tetanus Vaccination: Yes Review of Systems - Review of Systems Constitutional: No symptoms reported EENT: No symptoms reported Cardiovascular: No symptoms reported Respiratory: No symptoms reported Gastrointestinal: No symptoms reported Genitourinary: No symptoms reported Female Genitourinary: No symptoms reported Musculoskeletal: No symptoms reported Skin: No symptoms reported Hematologic/Lymphatic: No symptoms reported Neurological/Psychological: See HPI Physical Exam - Vital signs Vitals: Resp Pulse Ox 15 100 11/21/20 14:27 11/21/20 14:27 - Notes Notes: GENERAL: Patient is alert and interactive but cannot engage in any meaningful fashion. No signs of distress HEAD: Normocephalic, atraumatic. EYES: Right eye appears blind, left eye reactive and unremarkable. ENT: Oral mucosa moist, tongue midline. Oropharynx unremarkable. Airway patent. NECK: Full range of motion. Supple. Trachea midline. No lymphadenopathy. LUNGS: Clear to auscultation bilaterally, no wheezes, rales, or rhonchi. No respiratory distress. Non-tender chest wall. HEART: Regular rate and rhythm. No murmur ABDOMEN: Soft, non-tender. Non-distended. EXTREMITIES: Moves all 4 extremities spontaneously. No edema, normal radial and dorsalis pedis pulses bilaterally. No cyanosis. BACK: no cervical, thoracic, lumbar midline tenderness. No saddle anesthesia, normal distal neurovascular exam. NEUROLOGICAL: Patient alert but unable to give orientation answers. Cranial nerves II through XII grossly intact. Moves all extremities spontaneously PSYCH: Calm SKIN: Warm, dry, normal turgor. No rashes or lesions noted. Course - Re-evaluation Re-evalutation: 11/21/20 15:00 While I was at bedside patient started having seizure-like activity, her heart rate increased, she was noted to be having a seizure. This lasted between 4 and 5 minutes long. Patient was given month 1 mg of Ativan based on her small size and this aborted the seizure. Patient given Keppra bolus, work-up pending. CT of the head shows encephalomalacia but no acute findings. CBC, chemistry nonspecific. Urinalysis shows blood and white blood cells however this is very similar compared to previous. No urinary symptoms, leukocytosis, fever, or vomiting. Discussed with die fitter and culture was placed instead of starting antibiotics. I discussed with Dr. Snider, will discuss with Dr. Agustin. I discussed the situation with Dr. Agustin he is very familiar with the case. He states essentially this is a palliative case and the die fitter did agree. He recommends case management consult, I called and left Felipe a message. Case management consult was placed. He recommends placing patient back on Keppra and primary care follow-up. I discussed this at length, family states appreciation and agreement. Patient without repeat incident, stable and at baseline at time of discharge. - Vital Signs Vital signs: Temp Pulse Resp BP Pulse Ox 19 147/81 H 99 11/21/20 16:00 11/21/20 14:28 11/21/20 16:00 - Laboratory Results Result Diagrams: 11/21/20 16:01 11/21/20 16:01 Laboratory Results Interpreted: 11/21/20 11/21/20 11/21/20 16:01 16:01 17:31 Hgb 9.3 L Hct 29.0 L MCV 74 L MCH 23.7 L RDW 15.4 H Lymph % (Auto) 5.5 L Absolute Lymphs (auto) 0.4 L Seg Neutrophils % 88.1 H Sodium 133.5 L Carbon Dioxide 20 L Glucose 301 H Albumin 2.8 L Urine Protein 100 H Urine Glucose (UA) 150 H Urine Ketones 20 H Urine Blood LARGE H Ur Leukocyte Esterase MODERATE H Urine Ascorbic Acid 20 H Critical Laboratory Results Reviewed: No Critical Results - Radiology Results Critical Radiology Results Reviewed: No Critical Results Discharge - Discharge Clinical Impression: Seizure Condition: Stable Disposition: HOME, SELF-CARE Additional Instructions: She was evaluated today for seizures. She has been treated for this, however no new or concerning findings noted on her work-up today. Take the Keppra as prescribed, follow-up with primary care for additional management. I discussed with Dr. Ramone rider, we have initiated case management consult for potential palliative care efforts as we discussed. They will be contacting you. Return for any concerning symptoms including repeat seizure, fever, vomiting, or something is not right. Prescriptions: Levetiracetam [Keppra 500 mg Tablet] 500 mg PO Q12 #60 tablet Referrals: CELESTE AGUSTIN MD [Primary Care Provider] - Follow up as needed
--- NOTE | 2020-11-21 15:22 | RADIOLOGY REPORT (SQ) ---
EXAM DESCRIPTION: CT HEAD WITHOUT IMAGES COMPLETED DATE/TIME: 11/21/2020 3:12 pm REASON FOR STUDY: Multiple seizures, history of cancer COMPARISON: 04/29/2020 TECHNIQUE: Axial images acquired through the brain without intravenous contrast. Images reviewed wi th bone, brain and subdural windows. Additional sagittal and coronal reconstructions were generated. Images stored on PACS. All CT scanners at this facility use dose modulation, iterative reconstruction, and/or weight based d osing when appropriate to reduce radiation dose to as low as reasonably achievable (ALARA). [facility]: Dose Right [facility]: CareDose [facility]: Dose Right [facility]: Teradose 4D [facility]: Smart [employer] RADIATION DOSE: CT Rad equipment meets quality standard of care and radiation dose reduction techniq ues were employed. CTDIvol: 53.2 mGy. DLP: 937 mGy-cm. mGy. LIMITATIONS: None. FINDINGS: VENTRICLES: Stable in size and configuration from prior exam. There stable hydrocephalus. CEREBRUM: There is decreased attenuation the periventricular and subcortical white matter. There is a large area of encephalomalacia in the left occipital lobe and posterior parietal region which has pr ogressed when compared to April. There is no intracranial hemorrhage, midline shift or mass effect. CEREBELLUM: Stable in appearance. No acute findings. EXTRAAXIAL SPACES: No fluid collections. No masses. ORBITS AND GLOBE: No intra- or extraconal masses. Normal contour of globe without masses. CALVARIUM: No fracture. PARANASAL SINUSES: No fluid or mucosal thickening. SOFT TISSUES: No mass or hematoma. OTHER: No other significant finding. IMPRESSION: Large area of encephalomalacia in the left posterior parietal and occipital lobe presuma jaxson related to old infarct. No acute intracranial event. Stable ventricular dilatation as well as chronic subcortical and periventricular white matter disease . EVIDENCE OF ACUTE STROKE: NO. COMMENT: Quality ID # [id number]: Final reports with documentation of one or more dose reduction techniques (e.g., Automated exposure control, adjustment of the mA and/or kV according to patient size, use of iterative reconstruction technique) TECHNICAL DOCUMENTATION: JOB ID: [id number] 2010 [employer]- All Rights Reserved Reading location - IP/workstation name: [email or web address]
--- NOTE | 2020-11-21 16:12 | RADIOLOGY REPORT (SQ) ---
EXAM DESCRIPTION: CHEST SINGLE VIEW IMAGES COMPLETED DATE/TIME: 11/21/2020 2:55 pm REASON FOR STUDY: weakness COMPARISON: 04/29/2020 EXAM PARAMETERS: NUMBER OF VIEWS: One view. TECHNIQUE: Single frontal radiographic view of the chest acquired. RADIATION DOSE: NA LIMITATIONS: None. FINDINGS: LUNGS AND PLEURA: Lungs are hyperinflated. No focal consolidation or pleural effusion. N o pneumothorax. MEDIASTINUM AND HILAR STRUCTURES: No masses. Contour normal. HEART AND VASCULAR STRUCTURES: Heart normal in size. Normal vasculature. BONES: No acute findings. HARDWARE: None in the chest. OTHER: No other significant finding. IMPRESSION: No acute cardiopulmonary disease. Hyperinflated lungs which can be seen with obstructiv e lung disease. TECHNICAL DOCUMENTATION: JOB ID: [id number] 2010 [email or web address]- All Rights Reserved Reading location - IP/workstation name: [email or web address]
[2020-11-21 16:31] LABS: ABSOLUTE LYMPHOCYTES (AUTO) 0.4 10^3/uL (0.5-4.7); ABSOLUTE MONOCYTES (AUTO) 0.4 10^3/uL (0.1-1.4); BASOPHILS % (AUTO) 0.5 % (0-2); EOSINOPHILS % (AUTO) 0.2 % (0-6); HEMOGLOBIN 9.3 g/dL (12.0-15.5); LYMPHOCYTES % (AUTO) 5.5 % (13-45); MEAN CORPUSCULAR HEMOGLOBIN 23.7 pg (27.0-33.4); MEAN CORPUSCULAR HGB CONC 32.1 g/dL (32.0-36.0); MEAN CORPUSCULAR VOLUME 74 fl (80-97); MONOCYTES % (AUTO) 5.7 % (3-13); PLATELET COUNT 282 10^3/uL (150-450); RED BLOOD COUNT 3.93 10^6/uL (3.72-5.28); RED CELL DISTRIBUTION WIDTH 15.4 % (11.5-14.0); SEGMENTED NEUTROPHILS % (AUTO) 88.1 % (42-78); TOTAL CELLS COUNTED % (AUTO) 100 %; WHITE BLOOD COUNT 6.8 10^3/uL (4.0-10.5)
[2020-11-21 16:48] LABS: ALBUMIN 2.8 g/dL (3.5-5.0); ALCOHOL < 10 mg/dL (NONE DETECTED); ALKALINE PHOSPHATASE 94 U/L (38-126); ANION GAP 10 (5-19); ASPARTATE AMINO TRANSFERASE 22 U/L (14-36); BILIRUBIN,DIRECT 0.3 mg/dL (0.0-0.4); BILIRUBIN,TOTAL 0.3 mg/dL (0.2-1.3); BLOOD UREA NITROGEN 15 mg/dL (7-20); CALCIUM 8.6 mg/dL (8.4-10.2); CARBON DIOXIDE 20 mmol/L (22-30); CHLORIDE 104 mmol/L (98-107); GLUCOSE 301 mg/dL (75-110); POTASSIUM 4.5 mmol/L (3.6-5.0); TOTAL PROTEIN 6.5 g/dL (6.3-8.2)
[2020-11-21 18:07] LABS: APPEARANCE,URINE SLIGHTLY-CLOUDY; BILIRUBIN,URINE NEGATIVE (NEGATIVE); COLOR,URINE YELLOW; GLUCOSE, URINE 150 mg/dL (NEGATIVE); KETONES,URINE 20 mg/dL (NEGATIVE); LEUKOCYTE ESTERASE,URINE MODERATE (NEGATIVE); NITRITE,URINE NEGATIVE (NEGATIVE); PROTEIN,URINE 100 mg/dL (NEGATIVE); UROBILINOGEN,URINE NEGATIVE mg/dL (<2.0)
[2020-11-21 20:26] VITALS: BP 154/95
== END 2020-11-21 20:30 | disposition home or self-care (01) ==
LOC: ER 14:21
DX: R56.9 Unspecified convulsions (principal); J44.9 Chronic obstructive pulmonary disease, unspecified; E11.9 Type 2 diabetes mellitus without complications
CPT/HCPCS: 99285; 96375; 96365; 36415; 87086; 80307; 83735; 85025; 80053; 81001; 71045; 70450; J2060; J7040; J1953